=== PATIENT | female | born 1980 | race Caucasian/White ===

== ENCOUNTER 2025-04-23 10:31 | Inpatient (IN) | payer MEDICAID ==
[~2025-04-23] VITALS: Ht 165.1 cm; Wt 114.0 kg
[2025-04-23] VITALS (11 sets, daily range): BP systolic 136–148; BP diastolic 72–82; PULSE 81–96; RESP 15–23; TEMP 97.4–97.8; O2SAT 92–99
--- NOTE | 2025-04-23 10:47 | Physician Documentation ---
History of Present Illness ~ Chief Complaint: Shortness of Breath Stated Complaint: LOW 02 Time Seen by MD: 11:25 OK to notify your PCP?: Yes Source: patient Mode of Arrival: POV Exam Limitations: no limitations HPI 44-year-old female presents with her caregiver for productive cough and low SpO2. She has been having this cough for the past couple of days with thick sputum. Denies any history of respiratory problems. Here we will you all denies any other symptoms such as nausea vomiting or diarrhea or nasal congestion or fevers. Medication Reconciliation Allergies: Coded Allergies: No Known Allergies (Unverified , 04/23/25) Scheduled Diclofenac Sodium (Voltaren Arthritis Pain), 4 GM TP Q6H, (Reported) Haloperidol (Haloperidol), 1 TAB PO Q12H, (Reported) Hydroxyzine Hcl* (Atarax*), 2 TAB PO DAILY, (Reported) Olanzapine (Olanzapine), 1.5 TAB PO HS, (Reported) Paliperidone Palmitate (Invega Sustenna), 1 SYR IM Q30D, (Reported) Scheduled PRN Acetaminophen (Tylenol), 1-2 TAB PO QID PRN PRN for pain or fever, (Reported) Review of Systems All Other Systems at this time: Reviewed and Negative Physical Exam Vital Signs: RN Vital Signs have been reviewed: Yes, Temperature: 97.1, Source: Temporal, Heart Rate: 102, Respiratory Rate: 20, BP: 128/95, Pulse Oximetry: 91, Weight: 114.000 Oxygen Flow Rate: 0 Pulse Oximetry Reflects: adequate oxygenation Physical Exam General: Alert, no apparent distress. HEENT: PERRL, EOMI, no injection, moist mucous membranes. Neck: Full range of motion. Respiratory: Mild respiratory distress, bilateral expiratory wheezes heard. Chest: No accessory muscle use. Cardiovascular: Regular rate and rhythm, no murmurs. Gastrointestinal: Soft, nontender, nondistended. Bowels sounds present. Extremities: Normal range of motion, no deformity. Neurologic: Oriented x4. Psychiatric: Normal mood and affect. Skin: Normal color, warm and dry. No edema, no ecchymosis. Progress Progress Note 130 patient ambulated with nursing 02 to 91% very symptomatic, sob near syncope. 227 on recheck patient still with extensive wheezing despite two breathing treatments. d/w hospitalist who accepts for admission Results/Orders Results/Orders Orders - MEREDITH DIAZ MD Svn Treatment (04/23/25 ) * Iv Access / Saline Lock * (04/23/25 11:24) Svn Treatment (04/23/25 ) Regular Diet (04/23/25 Dinner) Page Hospitalist (04/23/25 14:30) Fill Out Med Reconciliation (04/23/25 14:30) Covid19 Binax Poc Result Entry (04/23/25 14:30) Completed Orders - MEREDITH DIAZ MD Electrocardiogram (04/23/25 11:24) Ipratropium/Albuterol Nebule (Ipratrop/A (04/23/25 11:25) Ipratropium/Albuterol Nebule (Ipratrop/A (04/23/25 12:50) Albuterol 2.5mg/3ml Nebule (Proventil 2. (04/23/25 12:50) Albuterol 2.5mg/3ml Nebule (Proventil 2. (04/23/25 14:20) * Rt Notification Q1H (04/23/25 14:19) Methylprednisolone Sod Succ (Solumedrol (04/23/25 14:20) Vital Signs 04/23/25 04/23/25 04/23/25 04/23/25 10:39 11:38 11:46 12:02 Temp 97.1 Pulse 102 86 90 Resp 20 20 20 16 B/P (MAP) 128/95 Pulse Ox 91 92 94 O2 Delivery Nasal Cannula* Nasal Cannula* O2 Flow Rate 0 2 2 FiO2 28 28 04/23/25 04/23/25 04/23/25 04/23/25 13:07 13:19 13:32 13:35 Pulse 90 94 104 Resp 20 20 B/P (MAP) 135/79 (97) Pulse Ox 93 99 91 92 O2 Delivery Nasal Cannula* Nasal Cannula* Nasal Cannula* O2 Flow Rate 2 2 2 FiO2 28 28 28 04/23/25 13:48 Pulse 105 Resp 16 B/P (MAP) 129/62 (84) Pulse Ox 93 O2 Flow Rate 3.0 Laboratory Tests Test 04/23/25 11:03 04/23/25 11:35 Sodium Level 138 Potassium Level 4.2 Chloride Level 101 Carbon Dioxide Level 27.4 Anion Gap 10 Blood Urea Nitrogen 14 Creatinine 0.72 Estimated GFR/1.73 m2 88 BUN/Creatinine Ratio 19.4 Glucose Level 97 Calcium Level 8.8 Pro-B-Type Natriuretic Peptide 30 Albumin 3.2 L Chemistry Comments White Blood Count 5.8 Red Blood Count 4.93 Hemoglobin 14.3 Hematocrit 43.1 Mean Corpuscular Volume 87.5 Mean Corpuscular Hemoglobin 28.9 Mean Corpuscular Hemoglobin Concent 33.1 Red Cell Distribution Width 16.0 H Platelet Count 219 Mean Platelet Volume 7.9 Neutrophils (%) (Auto) 52.0 Lymphocytes (%) (Auto) 31.0 Monocytes (%) (Auto) 14.9 H Eosinophils (%) (Auto) 1.4 Basophils (%) (Auto) 0.7 Neutrophils # (Auto) 3.0 Lymphocytes # (Auto) 1.8 Monocytes # (Auto) 0.9 Eosinophils # (Auto) 0.1 Basophils # (Auto) 0.0 CBC Comment Lactic Acid Level 1.0 Microbiology Date/Time Source Procedure Growth Status 04/23/25 11:12 Blood Hand Right Blood Culture - Preliminary NEGATIVE (LESS THAN 24 HOURS) Resulted EKG/XRAY/CT/US/VASC/MRI EKG : Additional Comment EKG independently interpreted by myself time 1135 indication sob NSR rate 88 normal axis normal intervals no st or t wave abnormalities Medical Decision Making Differential Dx:Considerations: Include: CHF, COPD, panic attack Departure Disposition: 09 ADMITTED INPATIENT Admitted to Inpatient Unit: to hospitalist Impression: Primary Impression: Asthma Qualified Codes: J45.901 - Unspecified asthma with (acute) exacerbation Referrals: NO PRIMARY CARE PROVIDER (PCP) Additional Comment Medical Screen Exam This patient recieved a medical screening examination. After reviewing the ind ividual's medical complaints with presenting symptoms and performing an appropriate physical examination, it was determined that no immediate life- threatening emergency medical condition is present. This individual is also not a women having contractions. Signature Scribe Signature: na Attestation: EMILI Swann Apr 23, 2025 10:47 MEREDITH DIAZ MD Apr 23, 2025 14:30
--- NOTE | 2025-04-23 11:05 | RADIOLOGY REPORT ---
DI CHEST,TWO VIEWS, HISTORY: productive cough COMPARISON: None None TECHNICAL DATA: 2 view of the chest was obtained. FINDINGS: Lines and tubes: None Cardiomediastinal silhouette: normal Pulmonary vasculature: normal Lung expansion: normal Lung airspace: normal Lung interstitium: normal Pleura: normal Pneumothorax: no Bones: Unremarkable Other: no IMPRESSION: No acute intrathoracic abnormality.
[2025-04-23] MEDS: ipratropium/albuterol 3ml nebule NEB ONE ×2 (11:37→13:02)
--- NOTE | 2025-04-23 11:37 | ELECTROCARDIOGRAPH REPORT ---
[facility] Test Date: 2025-04-23 Test Time: 11:35:23 Pat Name: VIKRAM MALAVE Department: [facility] Patient ID: [facility]-[id number] Room: [place] [address] Gender: F Probation Counselor: : 1980 Requested By: MEREDITH DIAZ Order Number: [id number] Reading MD: Dr. Hipolito Hagan Measurements Intervals Start Rate: 88 P: 85 MS: 158 QRS: 75 QRSD: 84 T: 69 QT: 344 QTc: 417 Interpretive Statements Sinus rhythm Low voltage, precordial leads Electronically Signed On 04-26-2025 19:16:[address] Hipolito Hagan Please click the below link to view image of tracing.
[2025-04-23 11:41] LABS: MEAN PLATELET VOLUME 7.9 FL (7.4-10.4); RED CELL DISTRIBUTION WIDTH 16.0 % (11.5-14.5)
[2025-04-23 12:00] LABS: CREATININE 0.72 MG/DL (0.40-0.90); PRO BRAIN NATRIURETIC PEPTIDE 30 PG/ML (0-125); TOTAL CARBON DIOXIDE 27.4 MMOL/L (24-32); eCRCL 89 ML/MIN; eGFR 88 ML/MIN
[2025-04-23] MEDS: albuterol 2.5 MG/3 ML nebule NEB ONE ×2 (13:02→14:20)
[2025-04-23] MEDS ORDERED: OLAN-38 PO (13:52)
[2025-04-23] MEDS ORDERED: PALI156D IM (13:52)
[2025-04-23] MEDS ORDERED: HYDR-3686 PO (13:52)
[2025-04-23] MEDS ORDERED: HALO10TA13 PO (13:52)
[2025-04-23] MEDS ORDERED: DICL20GE TP (13:52)
[2025-04-23] MEDS ORDERED: ACET-890 PO (13:52)
[2025-04-23] MEDS ORDERED: magnesium Cl slow-release 64mg tablet PO PRN (14:45)
[2025-04-23] MEDS ORDERED: potassium Cl 20 mEq SR tablet PO PRN ×2 (14:45)
[2025-04-23] MEDS ORDERED: magnesium sulf-water 4G/100mL 100 ML IV PRN (14:45)
[2025-04-23] MEDS ORDERED: potassium Cl 40MEQ/1/2NS 520ml 520 ML IV PRN (14:45)
[2025-04-23] MEDS ORDERED: magnesium sulf-water 2g/50mL 50 ML IV PRN (14:45)
[2025-04-23] MEDS: albuterol 2.5 MG/3 ML nebule NEB SCH (15:56)
[2025-04-23] MEDS: CefTRIAXone 2gm/D5W 50ml BAG 50 ML IV SCH (16:42)
--- NOTE | 2025-04-23 17:44 | HISTORY AND PHYSICAL ---
History & Physical Providers to CC ~ History of Present Illness Reason for Admit\Complaint: Patient was brought from correction because of low oxygen saturation History of Present Illness Patient is 44-year-old female who currently lives in [facility] unit in [place]. Patient is conserved in her conservator number is in her name is Leti she has [facility]. Patient was brought from correction because of low oxygen saturation ( between 84-90 percent ) . Patient is current smoker smokes 5-6 cigarettes per day since last 13 years denied use of any alcohol or any recreational drugs. No fever cough or phlegm noticed. Patient has sick roommate with nausea vomiting and diarrhea symptoms but not with the respiratory symptoms. Patient denies any chest pain no irregular heart rate no swelling over the ankles. Besides shortness of breaths no other symptoms was noticed. No new changes in the medication and patient is compliant with her home medications. Allergies: Coded Allergies: No Known Allergies (Unverified , 04/23/25) Home Medications Home Medications Active Reported Voltaren Arthritis Pain (Diclofenac Sodium) 1 % Gel..gram. 4 Gm TP Q6H Tylenol (Acetaminophen) 325 Mg Tablet 1-2 Tab PO QID PRN PRN 7 Days Atarax* (Hydroxyzine HCl) 25 Mg Tablet 2 Tab PO DAILY 30 Days Olanzapine 10 Mg Tablet 1.5 Tab PO HS 30 Days Invega Sustenna (Paliperidone Palmitate) 156 Mg/Ml Syringe 1 Syr IM Q30D 30 Days Haloperidol 10 Mg Tablet 1 Tab PO Q12H 30 Days Past Medical History Past Medical History Schizophrenia and anxiety Past Surgical History Surgical History Comment No significant past surgical history Past Social History Social History Comment lives in [facility] unit in [place]. Patient is conserved in her conservator number is in her name is Leti she has [facility]. Patient is able to ambulate without using any assistive device ROS ROS Review of system as mentioned above in HPI rest of the review of system unremarkable. Exam Vitals: Vital Signs Date Time Temp Pulse Resp B/P (MAP) Pulse Ox O2 Delivery O2 Flow Rate FiO2 04/23/25 17:11 85 04/23/25 16:43 22 151/71 (97) 94 3.0 04/23/25 13:35 Nasal Cannula* 28 04/23/25 10:39 97.1 General: General-patient not in any acute distress, alert awake oriented, chronically ill-appearing HEENT-atraumatic normocephalic, neck supple without elevated JVD, no thyromegaly or carotid bruit. No lymphadenopathy bilaterally. Eyes-no icterus or pallor seen in eyes Chest-decreased breath sounds to auscultation bilaterally, breathing nonlabored no tachypnea, wheezing and rales noticed , no crackles. Heart-S1-S2 normal, regular heart rate no murmur Abdomen bowel sounds positive on auscultation, soft nondistended nontender no guarding, no rigidity Skin no active skin rash Neurology-grossly intact, nonfocal alert awake oriented Extremity- no pedal edema able to move all 4 extremities Psychiatry - patient is not confused or agitated cooperated during physical examination Diagnostic Data Last Recorded Lab Results: 04/23/25 1135 04/23/25 1103 Advance Care Planning Advanced Care plannin - 30 Minutes Additional Plan Patient is 44-year-old female who [facility] in [place]. Patient is conserved in her conservator number is in her name is Leti she has [facility]. Patient was brought from correction because of low oxygen saturation ( between 84-90 percent ) . Patient is admitted for shortness of breaths in possible asthma exacerbation. Patient is started on IV antibiotic IV steroids in albuterol nebulizer. We will do patient's home medication reconciliation and for her psych medication once updated in electronic health record system by nursing staff or pharmacist. Further workup ordered for shortness of breath . All labs and diagnostic workup reviewed Her x-ray in the labs looks unremarkable. Code status discussed with the patient patient wishes to stay full code. Patient was strongly advised to quit smoking and risks explained. Patient's current condition is guarded I will continue to follow patient in a.m.. Date of Service: Apr 23, 2025 Billing Provider: EVERETT DIAS MD Common Visit Codes: [id number] INP/OBS CARE (HIGH) Secondary Visit Codes: [id number] CARE PLAN 30 MINUTES EVERETT DIAS MD Apr 23, 2025 17:44
[2025-04-23] MEDS: azithromycin/NS 500mg/250ml 250 ML IV SCH (17:53)
--- NOTE | 2025-04-23 18:29 | CARDIOLOGY REPORT ---
APPROVED REPORT EXAM: Comprehensive 2D, Doppler, and color-flow Echocardiogram. Patient Location: ER 3 Blood Pressure: 129/62 mmHg Heart Rate: 77 bpm Rhythm: SINUS Indications SHORTNESS OF BREATH Lumber Scaler: none Previous echo: none 2D Dimensions RVDd 3.3 cm LA Diam4.0 cm IVSd 1.0 (0.7-1.1cm) LVDd 3.7 cm PWd 1.0 (0.7-1.1cm) IVSs 1.2 (0.8-1.2cm) LVDs 2.7 (2.5-4.0cm) PWs 1.4 (0.8-1.2cm) LVOT Diameter 2.04 (1.8-2.4cm) LVEF(%) 55.9 (>50%) FS (%) 28.5 % SV 32.9 ml CO 3.0 L/min M-Mode Dimensions Left Atrium(MM) 3.62 (2.5-4.0cm) Aortic Root 2.89 (2.2-3.7cm) Aortic Cusp Exc 2.20 (1.5-2.0cm) Biplane 2D LA Volumes LA ESV Index 15.96 mL/m2 Aortic Valve AoV Peak Brandon. 145.4 cm/s AoV VTI 22.5 cm AO Peak GR. 8.5 mmHg AO Mean GR. 5 mmHg LVOT VTI 17.70 cm LVOT Peak Brandon. 118.4 cm/s GALDINO(VTI)/BSA 2.55 cm2/m2 GALDINO (VTI) 2.55 cm2 Mitral Valve MV E Velocity 65.1 cm/s MV Peak Gr. 3 mmHg MV DECEL TIME 260 ms MV A Velocity 82.6 cm/s MV PHT 56 ms E/A Ratio 0.8 MVA (PHT) 3.93 cm2 MV VMax82.5 cm/s TDI Medial E' P. V 10.54 cm/s E/Medial E' 6.2 Pulmonary Vein S1 Velocity 41.9 cm/s D2 Velocity 52.6 cm/s PVa Gzdoebfy20.5 cm/s PVa [id number] msec LEFT VENTRICLE Small LV size and normal wall thickness. Overall systolic function is normal. Grade 1 diastolic dysfu nction, impaired relaxation (low to normal filling pressures). LVEF is 55-60%. RIGHT VENTRICLE RV is normal size and function. ATRIA LA size is normal. RA size is normal. AORTIC VALVE Trileaflet AV appears mildly sclerotic without stenosis or insufficiency. MITRAL VALVE Mild MV annular calcification without stenosis. Trace regurgitation. TRICUSPID VALVE TV appears structurally normal with trace regurgitation. PULMONIC VALVE Normal PV without stenosis, physiologic insufficiency. GREAT VESSELS Aortic root is normal in size. Ascending aorta is normal in size. PERICARDIUM Trace circumferential pericardial effusion without evidence of hemodynamic compromise. Prominent ante rior epicardial fat pad is present. Other Information Study Quality: Adequate, but difficult due to body habitus, shortness of breath, and cough. Conclusion Small LV size and normal wall thickness. Overall systolic function is normal. Grade 1 diastolic dysfu nction, impaired relaxation (low to normal filling pressures). LVEF is 55-60%. RV is normal size and function. LA size is normal. RA size is normal. Trileaflet AV appears mildly sclerotic without stenosis or insufficiency. Mild MV annular calcification without stenosis. Trace regurgitation. TV appears structurally normal with trace regurgitation. Trace circumferential pericardial effusion without evidence of hemodynamic compromise. Prominent ante rior epicardial fat pad is present.
[2025-04-23] MEDS: OLANZAPINE 5 MG TABLET PO SCH (22:18)
[2025-04-23] MEDS: heparin, porcine 5000 units/ml vial SQ SCH (22:20)
[2025-04-24] VITALS (16 sets, daily range): BP systolic 103–157; BP diastolic 54–82; PULSE 63–102; RESP 13–20; TEMP 97.3–97.9; O2SAT 89–98
[2025-04-24 06:53] LABS: CREATININE 0.67 MG/DL (0.40-0.90); TOTAL CARBON DIOXIDE 25.3 MMOL/L (24-32); eCRCL 95 ML/MIN; eGFR > 90 ML/MIN
[2025-04-24 07:02] LABS: MEAN PLATELET VOLUME 8.5 FL (7.4-10.4); RED CELL DISTRIBUTION WIDTH 15.5 % (11.5-14.5)
[2025-04-24] MEDS ORDERED: FLUO20CA41 PO (10:14)
--- NOTE | 2025-04-24 16:09 | PROGRESS NOTE ---
Daily Progress Note Providers to CC ~ Antibiotic Timeout Antibiotic Ordered?: Yes Subjective Patient was seen in her room requiring 2 L of oxygen saturating well. Patient's clinical condition not much change since yesterday. Waiting for the CTA chest results. Objective Vital Signs Date Time Temp Pulse Resp B/P (MAP) Pulse Ox O2 Delivery O2 Flow Rate FiO2 04/24/25 15:49 86 18 Nasal Cannula 1.0 04/24/25 15:42 89 21 04/24/25 15:00 97.9 155/82 (106) Result Diagram: 04/24/25 0605 04/24/25 06 General-patient not in any acute distress, alert awake oriented, chronically ill-appearing HEENT-atraumatic normocephalic, neck supple without elevated JVD, no thyromegaly or carotid bruit. No lymphadenopathy bilaterally. Eyes-no icterus or pallor seen in eyes Chest-decreased breath sounds to auscultation bilaterally, breathing nonlabored no tachypnea, wheezing and rales noticed , no crackles. Heart-S1-S2 normal, regular heart rate no murmur Abdomen bowel sounds positive on auscultation, soft nondistended nontender no guarding, no rigidity Skin no active skin rash Neurology-grossly intact, nonfocal alert awake oriented Extremity- no pedal edema able to move all 4 extremities Psychiatry - patient is not confused or agitated cooperated during physical examination Coagulation Studies Laboratory Tests Test 04/24/25 06:05 D-Dimer 0.71 MG/L FEU (0-0.50) H D-Dimer Comment Problem\Assessment\Plan Patient is 44-year-old female who [facility] [place]. Patient is conserved in her conservator number is in her name is Leti she has [facility]. Patient was brought from longterm because of low oxygen saturation ( between 84-90 percent ) . Patient is admitted for shortness of breaths in possible asthma exacerbation. # possible asthma exacerbation- continue on IV antibiotic IV steroids in albuterol nebulizer. # Schizophrenia and anxiety- home medication reconciliation updated in electronic health record system # Code status discussed with the patient patient wishes to stay full code. # tobacco abuse- Patient was strongly advised to quit smoking and risks explained. Patient's current condition is guarded Incoming provider will continue to follow patient in a.m.. Date of Service: Apr 24, 2025 Billing Provider: EVERETT DIAS MD Common Visit Codes: [id number] INP/OBS CARE(HIGH) EVERETT DIAS MD Apr 24, 2025 16:09
--- NOTE | 2025-04-24 17:20 | RADIOLOGY REPORT ---
CTA Chest with intravenous contrast INDICATION: elevated D- dimer , SOB COMPARISON: None TECHNIQUE: Multidetector spiral CTA of the chest was performed of the chest with intravenous contrast . PULMONARY ANGIOGRAPHY PROTOCOL was utilized using a bolus-tracking technique centered on the main p ulmonary artery. Axial, coronal and sagittal multiplanar and MIP reformats were performed. CONTRAST: Type of contrast: Omni 350 Contrast injected: 100 ml Radiation dose : Chest: CTDI volume is 24 mGy. Dose-length product is 828 mGy*cm The dose indicators for CT are the volume computed Tomography (CT) dose Index (CTDIvol) and the dose Length product (DLP), and are measured in units of mGy and mGy-cm, respectively. These indicators are not patient dose, but values generated from the CT scanner acquisition factors. The report includes radiation exposure data for exposures received during this examination. Findings: Limited by motion. Pulmonary artery: No large central or large segmental pulmonary embolism. Lower neck: Normal thyroid. Lungs: Bibasilar atelectasis and consolidation. Heart/Vascular Structures: Normal heart size. Trace pericardial effusion. Lymph Nodes: Mediastinal and hilar lymphadenopathy. Pleura: Small bilateral pleural effusions. Musculoskeletal: No acute osseous abnormality. Soft tissues: Normal. Upper abdomen: Limited portions of the upper abdomen are unremarkable. IMPRESSION: 1. Limited by motion. No large central pulmonary embolism. 2. Small bilateral pleural effusions with associated bibasilar atelectasis and consolidation. Medias tinal and hilar lymphadenopathy. Trace pericardial effusion. Clinical correlation and continued foll ow-up is recommended. HS:Y
[2025-04-25] VITALS (16 sets, daily range): BP systolic 112–151; BP diastolic 62–90; PULSE 64–101; RESP 14–19; TEMP 97.2–97.8; O2SAT 91–96
[2025-04-25 04:54] LABS: MEAN PLATELET VOLUME 8.5 FL (7.4-10.4); RED CELL DISTRIBUTION WIDTH 15.9 % (11.5-14.5)
[2025-04-25 05:08] LABS: TOTAL CARBON DIOXIDE 26.8 MMOL/L (24-32)
[2025-04-25 06:30] LABS: CREATININE 0.81 MG/DL (0.40-0.90); eCRCL 79 ML/MIN; eGFR 76 ML/MIN
[2025-04-25] MEDS ORDERED: ipratropium/albuterol 3ml nebule NEB PRN (08:30)
[2025-04-25] MEDS ORDERED: FLUT1DIS4 INH (10:23)
[2025-04-25] MEDS ORDERED: PRED10TA23 PO ×2 (10:23→16:58)
[2025-04-25] MEDS ORDERED: ALBU90AE INH (10:23)
[2025-04-25] MEDS ORDERED: AMOX-419 PO (10:23)
[2025-04-25] MEDS ORDERED: ASPI81TA52 PO (10:23)
--- NOTE | 2025-04-25 15:18 | PROGRESS NOTE ---
Daily Progress Note Providers to CC ~ Antibiotic Timeout Antibiotic Ordered?: Yes Subjective No acute events overnight. Patient examined at bedside. No new complaints, not in acute distress. Patient denies chest pain, palpitations, abdominal pain, n/v/d. Vss, labs unremarkable. wbc 20, likely demargination from steroid, procal negative, lactic acid normal. Oxygen challenge w/ ambulation- O2 dropped to 86% w/ ambulation. Steroid dose adjusted, scheduled Duoneb started, continued on prn albuterol. Objective Vital Signs Date Time Temp Pulse Resp B/P (MAP) Pulse Ox O2 Delivery O2 Flow Rate FiO2 04/25/25 11:56 86 18 Room Air 0.0 04/25/25 11:49 91 21 04/25/25 06:00 97.4 112/62 (79) Result Diagram: 04/25/2542404/25/25424 Physical Exam General: A&Ox 3, NAD HEENT: Normocephalic, PERRLA Neck: Supple, trachea midline, no JVD Chest: Clear to auscultation bilaterally Cardiovascular: RRR, S1&S2 GI: Soft and nontender Extremities: No cyanosis/clubbing/or edema REFERRAL MANAGER: CN II-XII intact, no focal deficits Musculoskeletal: No paraspinal muscle tenderness, no muscle spasm Skin: Warm and intact Coagulation Studies Laboratory Tests Test 04/24/25 06:05 D-Dimer 0.71 MG/L FEU (0-0.50) H D-Dimer Comment Problem\Assessment\Plan Patient is 44-year-old female who [facility] [place]. Patient is conserved in her conservator number is in [facility] from custodial because of low oxygen saturation ( between 84-90 percent ) . Patient is admitted for shortness of breaths in possible asthma exacerbation. COPD/asthma exacerbation Tobacco abuse -04/25: desatted to 86% with ambulation, steroid dose adjusted, start scheduled bronchodilator, supplemental oxygen, empirical abx Schizophrenia and anxiety -continue home olanzapine Code status: Full Code DVT/VTE Prophylaxis: Date of Service: Apr 25, 2025 Billing Provider: BRIAN NOGUERA Common Visit Codes: [id number] INP/OBS CARE(HIGH) BRIAN NOGUERA Apr 25, 2025 15:18
[2025-04-25] MEDS: budesonide 0.5mg/2ml UD nebule IH SCH (15:39)
[2025-04-25] MEDS: ipratropium/albuterol 3ml nebule NEB SCH (15:46)
[2025-04-26] VITALS (15 sets, daily range): BP systolic 118–145; BP diastolic 54–74; PULSE 60–81; RESP 14–18; TEMP 97.4–98; O2SAT 89–99
[2025-04-26 05:30] LABS: MEAN PLATELET VOLUME 8.5 FL (7.4-10.4); RED CELL DISTRIBUTION WIDTH 15.9 % (11.5-14.5)
[2025-04-26] MEDS ORDERED: albuterol 2.5 MG/3 ML nebule NEB PRN (14:20)
--- NOTE | 2025-04-26 14:20 | PROGRESS NOTE ---
Daily Progress Note Providers to CC ~ Antibiotic Timeout Antibiotic Ordered?: Yes Subjective No acute events overnight. Patient examined at bedside. No new complaints, not in acute distress. Patient denies chest pain, palpitations, shortness of breath, abdominal pain, n/v/d. Vss, labs unremarkable. Remains on room air with oxygen saturation in 90s. Oxygen challenge w/ ambulation- O2 dropped to 84% w/ ambulation requiring supplemental oxygen. Pending placement. Objective Vital Signs Date Time Temp Pulse Resp B/P (MAP) Pulse Ox O2 Delivery O2 Flow Rate FiO2 04/26/25 11:37 67 18 Room Air 0.0 04/26/25 11:36 98 21 04/25/25 22:00 97.8 117/70 (86) Result Diagram: 04/26/254 04/25/25424 Physical Exam General: A&Ox 3, NAD HEENT: Normocephalic, PERRLA Neck: Supple, trachea midline, no JVD Chest: Clear to auscultation bilaterally Cardiovascular: RRR, S1&S2 GI: Soft and nontender Extremities: No cyanosis/clubbing/or edema MONITOR CAR OPERATOR: CN II-XII intact, no focal deficits Musculoskeletal: No paraspinal muscle tenderness, no muscle spasm Skin: Warm and intact Coagulation Studies Laboratory Tests Test 04/24/25 06:05 D-Dimer 0.71 MG/L FEU (0-0.50) H D-Dimer Comment Problem\Assessment\Plan Patient is 44-year-old female [facility] [place]. Patient is conserved in her conservator number is in her name is Leti she has [facility]. [facility] because of [facility] saturation ( between 84-90 percent ) . Patient is admitted for shortness of breaths in possible asthma exacerbation. COPD/asthma exacerbation Tobacco abuse -04/25: desatted to 86% with ambulation, steroid dose adjusted, start scheduled bronchodilator, supplemental oxygen, empirical abx -04/26: pending placement Schizophrenia and anxiety -continue home olanzapine Code status: Full Code DVT/VTE Prophylaxis: Date of Service: Apr 26, 2025 Billing Provider: BRIAN NOGUERA Common Visit Codes: [id number] INP/OBS CARE(HIGH) BRIAN NOGUERA Apr 26, 2025 14:20
[2025-04-27] VITALS (13 sets, daily range): BP systolic 118–156; BP diastolic 65–78; PULSE 57–85; RESP 16–20; TEMP 97.9–98.2; O2SAT 90–96
[2025-04-27 05:11] LABS: CREATININE 0.75 MG/DL (0.40-0.90); TOTAL CARBON DIOXIDE 25.3 MMOL/L (24-32); eCRCL 85 ML/MIN; eGFR 84 ML/MIN
[2025-04-27 05:27] LABS: MEAN PLATELET VOLUME 7.9 FL (7.4-10.4); RED CELL DISTRIBUTION WIDTH 16.4 % (11.5-14.5)
--- NOTE | 2025-04-27 10:48 | PROGRESS NOTE ---
Daily Progress Note Providers to CC ~ Antibiotic Timeout Antibiotic Ordered?: Yes Subjective No acute events overnight. Patient examined at bedside. No new complaints, not in acute distress. Patient denies chest pain, palpitations, shortness of breath, abdominal pain, n/v/d. Vss, labs unremarkable. Remains on room air with oxygen saturation in 90s. Oxygen challenge w/ ambulation- O2 dropped to 84% w/ ambulation requiring supplemental oxygen. Pending placement. Objective Vital Signs Date Time Temp Pulse Resp B/P (MAP) Pulse Ox O2 Delivery O2 Flow Rate FiO2 04/27/25 08:13 70 18 Room Air 0.0 04/27/25 08:12 93 21 04/26/25 22:00 98.0 145/73 (97) Result Diagram: 04/27/25 0513 04/27/25 0431 Physical Exam General: A&Ox 3, NAD HEENT: Normocephalic, PERRLA Neck: Supple, trachea midline, no JVD Chest: Clear to auscultation bilaterally Cardiovascular: RRR, S1&S2 GI: Soft and nontender Extremities: No cyanosis/clubbing/or edema SECURITY COMPLIANCE ENGINEER: CN II-XII intact, no focal deficits Musculoskeletal: No paraspinal muscle tenderness, no muscle spasm Skin: Warm and intact Coagulation Studies Laboratory Tests Test 04/24/25 06:05 D-Dimer 0.71 MG/L FEU (0-0.50) H D-Dimer Comment Problem\Assessment\Plan Patient is 44-year-old female who [facility] [place]. Patient is conserved in her conservator number is in her name is Leti she has [facility]. Patient was brought from detention because of low oxygen saturation ( between 84-90 percent ) . Patient is admitted for shortness of breaths in possible asthma exacerbation. COPD/asthma exacerbation Tobacco abuse -04/25: desatted to 86% with ambulation, steroid dose adjusted, start scheduled bronchodilator, supplemental oxygen, empirical abx -04/26: pending placement Schizophrenia and anxiety -continue home olanzapine Code status: Full Code DVT/VTE Prophylaxis: Date of Service: Apr 27, 2025 Billing Provider: BRIAN NOGUERA Common Visit Codes: [id number] INP/OBS CARE(HIGH) BRIAN NOGUERA Apr 27, 2025 10:48
[2025-04-28] VITALS (15 sets, daily range): BP systolic 116–140; BP diastolic 54–76; PULSE 65–80; RESP 14–20; TEMP 97.6–98.5; O2SAT 91–98
[2025-04-28 04:44] LABS: MEAN PLATELET VOLUME 7.9 FL (7.4-10.4); RED CELL DISTRIBUTION WIDTH 15.9 % (11.5-14.5)
[2025-04-28 05:05] LABS: CREATININE 0.84 MG/DL (0.40-0.90); TOTAL CARBON DIOXIDE 27.9 MMOL/L (24-32); eCRCL 76 ML/MIN; eGFR 73 ML/MIN
[2025-04-28 05:14] LABS: BANDS% (MANUAL) 2 % (0-10); LYMPHOCYTES % (MANUAL) 12 % (21-51); METAMYLEOCYTES% (MANUAL) 1 % (0-0); MONOCYTES % (MANUAL) 3 % (2-12); MYELOCYTES % (MANUAL) 1 % (0-0); NEUTROPHILS % (MANUAL) 81 % (42-75); PLATELET ESTIMATE NORMAL
--- NOTE | 2025-04-28 11:39 | PROGRESS NOTE ---
Daily Progress Note Providers to CC ~ Antibiotic Timeout Antibiotic Ordered?: Yes Subjective No acute events overnight. Patient examined at bedside. No new complaints, not in acute distress. Patient denies chest pain, palpitations, shortness of breath, abdominal pain, n/v/d. Vss, on 1L O2, labs unremarkable. Pending placement. Objective Vital Signs Date Time Temp Pulse Resp B/P (MAP) Pulse Ox O2 Delivery O2 Flow Rate FiO2 04/28/25 11:27 77 18 Nasal Cannula 1.0 04/28/25 11:17 91 24 04/27/25 22:00 98.2 118/65 (82) Result Diagram: 04/28/2542704/28/25427 Physical Exam General: A&Ox 3, NAD HEENT: Normocephalic, PERRLA Neck: Supple, trachea midline, no JVD Chest: Clear to auscultation bilaterally Cardiovascular: RRR, S1&S2 GI: Soft and nontender Extremities: No cyanosis/clubbing/or edema CATALOGUE CLERK: CN II-XII intact, no focal deficits Musculoskeletal: No paraspinal muscle tenderness, no muscle spasm Skin: Warm and intact Coagulation Studies Laboratory Tests Test 04/24/25 06:05 D-Dimer 0.71 MG/L FEU (0-0.50) H D-Dimer Comment Problem\Assessment\Plan Patient is 44-year-old female who [facility] [place]. Patient is conserved in her conservator number is in her name is Leti [facility]. Patient was brought from retirement because of low oxygen saturation ( between 84-90 percent ). Patient is admitted for shortness of breaths in possible asthma exacerbation. Assessment & Plan Acute COPD/asthma exacerbation Tobacco abuse -04/25: desatted to 86% with ambulation, steroid dose adjusted, start scheduled bronchodilator, supplemental oxygen, empirical abx -04/26: pending placement Schizophrenia Anxiety disorder -continue home olanzapine Code status: Full Code DVT/VTE Prophylaxis: heparin Date of Service: Apr 28, 2025 Billing Provider: BRIAN NOGUERA Common Visit Codes: [id number] INP/OBS CARE(MOD) BRIAN NOGUERA Apr 28, 2025 11:39
[2025-04-29] VITALS (13 sets, daily range): BP systolic 122–139; BP diastolic 68; PULSE 61–79; RESP 16–18; TEMP 97.1–97.4; O2SAT 92–94
[2025-04-29 05:56] LABS: MEAN PLATELET VOLUME 8.3 FL (7.4-10.4); RED CELL DISTRIBUTION WIDTH 16.3 % (11.5-14.5)
[2025-04-29 06:16] LABS: CREATININE 0.79 MG/DL (0.40-0.90); TOTAL CARBON DIOXIDE 27.0 MMOL/L (24-32); eCRCL 81 ML/MIN; eGFR 79 ML/MIN
[2025-04-29 07:17] LABS: BANDS% (MANUAL) 2.0 % (0-10); LYMPHOCYTES % (MANUAL) 10.0 % (21-51); METAMYLEOCYTES% (MANUAL) 1.0 % (0-0); MONOCYTES % (MANUAL) 5.0 % (2-12); NEUTROPHILS % (MANUAL) 82.0 % (42-75); PLATELET ESTIMATE NORMAL
--- NOTE | 2025-04-29 13:36 | PROGRESS NOTE ---
Daily Progress Note Providers to CC ~ Antibiotic Timeout Antibiotic Ordered?: Yes Subjective No acute events overnight. Patient examined at bedside. No new complaints, not in acute distress. Patient denies chest pain, palpitations, shortness of breath, abdominal pain, n/v/d. Vss, on 1-2L O2, labs unremarkable. Pending placement. Objective Vital Signs Date Time Temp Pulse Resp B/P (MAP) Pulse Ox O2 Delivery O2 Flow Rate FiO2 04/29/25 11:07 72 16 Nasal Cannula 2.0 04/29/25 11:00 94 28 04/29/25 06:49 97.4 122/68 (86) Result Diagram: 04/29/25 0455 04/29/25 0455 Physical Exam General: A&Ox 3, NAD HEENT: Normocephalic, PERRLA Neck: Supple, trachea midline, no JVD Chest: Clear to auscultation bilaterally Cardiovascular: RRR, S1&S2 GI: Soft and nontender Extremities: No cyanosis/clubbing/or edema SURGICAL ENDOSCOPIST: CN II-XII intact, no focal deficits Musculoskeletal: No paraspinal muscle tenderness, no muscle spasm Skin: Warm and intact Coagulation Studies Laboratory Tests Test 04/24/25 06:05 D-Dimer 0.71 MG/L FEU (0-0.50) H D-Dimer Comment Problem\Assessment\Plan Patient is 44-year-old female who [facility] [place]. Patient is conserved in her conservator number is in her name is Leti [facility] Patient was brought from correction because of low oxygen saturation ( between 84-90 percent ). Patient is admitted for shortness of breaths in possible asthma exacerbation. Assessment & Plan Acute COPD/asthma exacerbation Tobacco abuse -CTA negative PE, pBNP wnl, TTE LVEF 55-60%, no significant VHD, trace circumferential pericardial effusion without evidence of hemodynamic compromise -04/25: desatted to 86% with ambulation, steroid dose adjusted, start scheduled bronchodilator, supplemental oxygen, empirical abx -04/26: pending placement Schizophrenia Anxiety disorder -continue home olanzapine Code status: Full Code DVT/VTE Prophylaxis: heparin Date of Service: Apr 29, 2025 Billing Provider: BRIAN NOGUERA SATELLITE DISH REPAIRER Common Visit Codes: [id number] INP/OBS CARE(MOD) BRIAN NOGUERA SATELLITE DISH REPAIRER Apr 29, 2025 13:36
[2025-04-30] VITALS (14 sets, daily range): BP systolic 116–139; BP diastolic 65–76; PULSE 62–83; RESP 14–20; TEMP 97.5–97.9; O2SAT 91–96
[2025-04-30 06:06] LABS: MEAN PLATELET VOLUME 8.2 FL (7.4-10.4); RED CELL DISTRIBUTION WIDTH 16.1 % (11.5-14.5)
[2025-04-30 06:44] LABS: CREATININE 0.78 MG/DL (0.40-0.90); TOTAL CARBON DIOXIDE 27.5 MMOL/L (24-32); eCRCL 82 ML/MIN; eGFR 80 ML/MIN
[2025-04-30 06:45] LABS: BANDS% (MANUAL) 4.0 % (0-10); LYMPHOCYTES % (MANUAL) 8.0 % (21-51); METAMYLEOCYTES% (MANUAL) 2.0 % (0-0); MONOCYTES % (MANUAL) 5.0 % (2-12); NEUTROPHILS % (MANUAL) 81.0 % (42-75); PLATELET ESTIMATE NORMAL
--- NOTE | 2025-04-30 10:50 | PROGRESS NOTE ---
Daily Progress Note Providers to CC ~ Antibiotic Timeout Antibiotic Ordered?: No Subjective No acute events overnight. Patient examined at bedside. No new complaints, not in acute distress. Patient denies chest pain, palpitations, shortness of breath, abdominal pain, n/v/d. Vss, on 1-2L O2, labs unremarkable. Pending placement. Objective Vital Signs Date Time Temp Pulse Resp B/P (MAP) Pulse Ox O2 Delivery O2 Flow Rate FiO2 04/30/25 07:21 63 16 Nasal Cannula 2.0 04/30/25 07:18 97.9 116/65 (82) 96 04/30/25 07:14 28 Result Diagram: 04/30/25 0501 04/30/25 0501 Physical Exam General: A&Ox 3, NAD HEENT: Normocephalic, PERRLA Neck: Supple, trachea midline, no JVD Chest: Clear to auscultation bilaterally Cardiovascular: RRR, S1&S2 GI: Soft and nontender Extremities: No cyanosis/clubbing/or edema MOLD STAMPER AND REPAIRER: CN II-XII intact, no focal deficits Musculoskeletal: No paraspinal muscle tenderness, no muscle spasm Skin: Warm and intact Coagulation Studies Laboratory Tests Test 04/24/25 06:05 D-Dimer 0.71 MG/L FEU (0-0.50) H D-Dimer Comment Problem\Assessment\Plan Patient is 44-year-old female who [facility] in [place]. Patient is conserved in her conservator number is in [facility] name is [facility] because of [facility] saturation ( between 84-90 percent ). Patient is admitted for shortness of breaths in possible asthma exacerbation. Assessment & Plan Acute COPD/asthma exacerbation Tobacco abuse -CTA negative PE, pBNP wnl, TTE LVEF 55-60%, no significant VHD, trace circumferential pericardial effusion without evidence of hemodynamic compromise -04/25: desatted to 86% with ambulation, steroid dose adjusted, start scheduled bronchodilator, supplemental oxygen, empirical abx -04/26-04/30: pending placement Schizophrenia Anxiety disorder -continue home olanzapine Code status: Full Code DVT/VTE Prophylaxis: heparin Date of Service: Apr 30, 2025 Billing Provider: BRIAN NOGUERA Common Visit Codes: [id number] INP/OBS CARE(MOD) BRIAN NOGUERA [facility] Apr 30, 2025 10:50
[2025-05-01] VITALS (13 sets, daily range): BP systolic 139–147; BP diastolic 70–75; PULSE 60–80; RESP 14–20; TEMP 97.8–98.6; O2SAT 91–97
[2025-05-01 05:12] LABS: MEAN PLATELET VOLUME 7.9 FL (7.4-10.4); RED CELL DISTRIBUTION WIDTH 15.9 % (11.5-14.5)
[2025-05-01 05:29] LABS: CREATININE 0.78 MG/DL (0.40-0.90); TOTAL CARBON DIOXIDE 28.5 MMOL/L (24-32); eCRCL 82 ML/MIN; eGFR 80 ML/MIN
[2025-05-01 05:51] LABS: BANDS% (MANUAL) 2.0 % (0-10); LYMPHOCYTES % (MANUAL) 8.0 % (21-51); METAMYLEOCYTES% (MANUAL) 1.0 % (0-0); MONOCYTES % (MANUAL) 5.0 % (2-12); NEUTROPHILS % (MANUAL) 84.0 % (42-75); NUCLEATED RED BLOOD CELLS 1 /100WBC (0-0)
[2025-05-01 05:52] LABS: PLATELET ESTIMATE NORMAL
--- NOTE | 2025-05-01 11:15 | PROGRESS NOTE ---
Daily Progress Note Providers to CC ~ Antibiotic Timeout Antibiotic Ordered?: No Subjective No acute events overnight. Patient examined at bedside. No new complaints, not in acute distress. Patient denies chest pain, palpitations, shortness of breath, abdominal pain, n/v/d. Vss, on 1-2L O2, labs unremarkable. Pending placement. Objective Vital Signs Date Time Temp Pulse Resp B/P (MAP) Pulse Ox O2 Delivery O2 Flow Rate FiO2 05/01/25 08:21 18 Nasal Cannula 1.0 05/01/25 07:50 64 05/01/25 07:38 92 28 04/30/25 22:00 97.6 128/69 (88) Result Diagram: 05/01/25 0448 05/01/25 0448 Physical Exam General: A&Ox 3, NAD HEENT: Normocephalic, PERRLA Neck: Supple, trachea midline, no JVD Chest: Clear to auscultation bilaterally Cardiovascular: RRR, S1&S2 GI: Soft and nontender Extremities: No cyanosis/clubbing/or edema SHOE ASSOCIATE: CN II-XII intact, no focal deficits Musculoskeletal: No paraspinal muscle tenderness, no muscle spasm Skin: Warm and intact Coagulation Studies Laboratory Tests Test 04/24/25 06:05 D-Dimer 0.71 MG/L FEU (0-0.50) H D-Dimer Comment Problem\Assessment\Plan Patient is 44-year-old female who [facility] [place]. Patient is conserved in her conservator number is in her name is Leti [facility] Patient was [facility] from [facility] because of low oxygen saturation ( between 84-90 percent ). Patient is admitted for shortness of breaths in possible asthma exacerbation. Assessment & Plan Acute COPD/asthma exacerbation Tobacco abuse -CTA negative PE, pBNP wnl, TTE LVEF 55-60%, no significant VHD, trace circumferential pericardial effusion without evidence of hemodynamic compromise -04/25: desatted to 86% with ambulation, steroid dose adjusted, start scheduled bronchodilator, supplemental oxygen, empirical abx -04/26-05/01: abx course finished, pending placement Schizophrenia Anxiety disorder -continue home olanzapine Code status: Full Code DVT/VTE Prophylaxis: heparin Date of Service: May 01, 2025 Billing Provider: BRIAN NOGUERAP Common Visit Codes: [id number] INP/OBS CARE(MOD) BRIAN NOGUERAP May 01, 2025 11:15
[2025-05-02] VITALS (10 sets, daily range): BP systolic 106–155; BP diastolic 47–80; PULSE 65–80; RESP 16–22; TEMP 97.6–98.2; O2SAT 18–98
[2025-05-02 04:58] LABS: MEAN PLATELET VOLUME 8.1 FL (7.4-10.4); RED CELL DISTRIBUTION WIDTH 16.3 % (11.5-14.5)
[2025-05-02 07:52] LABS: BANDS% (MANUAL) 4.0 % (0-10); LYMPHOCYTES % (MANUAL) 11.0 % (21-51); METAMYLEOCYTES% (MANUAL) 1.0 % (0-0); MONOCYTES % (MANUAL) 3.0 % (2-12); NEUTROPHILS % (MANUAL) 81.0 % (42-75); PLATELET ESTIMATE NORMAL
--- NOTE | 2025-05-02 09:56 | PROGRESS NOTE ---
Daily Progress Note Providers to CC Chief complaint, shortness of breath, improving ~ Central Line/PICC still needed: No Mathis-Non Protocol Mathis Indications Met/Not Met: F/C Indications Not Met Antibiotic Timeout Antibiotic Ordered?: Yes MRSA Education MRSA Education Provided to pt: Yes Subjective As above Objective Vital Signs Date Time Temp Pulse Resp B/P (MAP) Pulse Ox O2 Delivery O2 Flow Rate FiO2 05/02/25 07:52 73 18 Nasal Cannula 2.0 05/02/25 07:41 92 28 05/01/25 22:00 97.8 139/70 (93) Vital signs, stable ,afebrile. Pulse Oximetry reflects adequate oxygenation 2 L oxygen nasal cannula General: well developed, well nourished. Awake , alert, and oriented x4, resting comfortably in the bed, in no acute distress . Skin: Warm, dry, no pallor, no rash or petechiae. HEENT: Atraumatic, normocephalic, EOMI, anicteric sclera B; pink conjunctiva; PERRLA, normal oropharynx, moist oral and nasal mucosa. Tympanic membrane , nose , throat clear. Neck: Trachea midline. Supple, full range of motion, no JVD, bruit , hepatojugular reflex , lymphadenopathy or masses, or other lesions Cardiac: Regular rhythm, regular rate no murmurs, rubs, or gallops. Normal S1 and S2, no S3 noticed. PMI is normal. Respiratory: Equal breath sounds bilaterally, no tachypnea; lungs clear to auscultation bilaterally, no wheezing ,rub or rales, or crackles. Chest wall is symmetric and without deformity. No signs of trauma. Chest wall is nontender. No signs of respiratory distress. Resonance is normal upon percussion bilaterally. Gastrointestinal: Abdomen symmetric, non-distended, soft, non-tender, normal bowel sounds x4 quadrant, normoactive, no hepatosplenomegaly , no masses , no bruit, no flank pain bilaterally. No voluntary guarding, rebound, or rigidity. No tenderness to percussion. No pulsatile masses. Equal femoral pulses. No Amin's sign or McBurney point tenderness. Back; no CVA tenderness bilaterally, no deformities. Neck and back are without deformity as well. No tenderness noted on palpation of the spinous processes. Spinous processes are midline. Cervical, thoracic, and lumbar paraspinal muscles are not tender and are without spasm. Musculoskeletal: Extremities, normal range of motion, non-tender, muscle strength 5/5 x 4. Negative Homans signs bilaterally on lower extremity. Distal pulses full symmetrical, no clubbing, cyanosis , edema. Neurological: Speech is clear, alert, and oriented x 4. No motor or sensory deficit, deep tendon reflexes normal, cerebellar intact. Cranial nerves II-XII intact. Psych: Alert and or appropriate, normal affect. Vascular: Good distal pulses, which are equal x4; capillary refill less than 2 seconds. Lymphatic, no lymphadenopathy. Result Diagram: 05/02/25 0435 05/01/25 0448 Coagulation Studies Laboratory Tests Test 04/24/25 06:05 D-Dimer 0.71 MG/L FEU (0-0.50) H D-Dimer Comment Problem\Assessment\Plan Patient is 44-year-old female who currently lives in [facility] health unit in [place]. Patient is conserved in her conservator number is in her name is Leti [facility]. Patient was brought from assisted because of low oxygen saturation ( between 84-90 percent ). Patient is admitted for shortness of breaths in possible asthma exacerbation. Assessment & Plan Acute COPD/asthma exacerbation Tobacco abuse -CTA negative PE, pBNP wnl, TTE LVEF 55-60%, no significant VHD, trace circumferential pericardial effusion without evidence of hemodynamic compromise -04/25: desatted to 86% with ambulation, steroid dose adjusted, decreased dose today, start scheduled bronchodilator, supplemental oxygen, empirical abx -04/26-05/01: abx course finished, pending placement We will repeat chest x-ray now Schizophrenia Anxiety disorder -continue home olanzapine Code status: Full Code DVT/VTE Prophylaxis: heparin Sepsis Screening Reassessment Date: May 02, 2025 Date of Service: May 02, 2025 Billing Provider: ALAINA TIAN MD Common Visit Codes: [id number] INP/OBS CARE(HIGH) ALAINA TIAN MD May 02, 2025 09:56
--- NOTE | 2025-05-02 19:29 | RADIOLOGY REPORT ---
CHEST RADIOGRAPH REASON FOR EXAM: Shortness of breath COMPARISON: 04/23/2025 TECHNIQUE: One view of the chest is provided FINDINGS: The cardiomediastinal silhouette is within normal limits for size. There is left basilar ai rspace disease. There is small left pleural effusion. There is no pneumothorax. No acute osseous abno rmality is identified. IMPRESSION: Left basilar airspace disease. Small left pleural effusion. Correlate clinically for possible pneum onia.
[2025-05-03] VITALS (8 sets, daily range): BP systolic 112–148; BP diastolic 70–79; PULSE 63–76; RESP 14–21; TEMP 98; O2SAT 90–98
[2025-05-03 04:57] LABS: MEAN PLATELET VOLUME 7.9 FL (7.4-10.4); RED CELL DISTRIBUTION WIDTH 15.8 % (11.5-14.5)
--- NOTE | 2025-05-03 11:25 | PROGRESS NOTE ---
Daily Progress Note Providers to CC Please disregard this entry, duplicate ~ Central Line/PICC still needed: No Mathis-Non Protocol Mathis Indications Met/Not Met: F/C Indications Not Met Antibiotic Timeout Antibiotic Ordered?: No MRSA Education MRSA Education Provided to pt: No Objective Vital Signs Date Time Temp Pulse Resp B/P (MAP) Pulse Ox O2 Delivery O2 Flow Rate FiO2 05/03/25 08:00 19 98 Nasal Cannula 2.0 05/03/25 07:21 69 05/03/25 07:12 28 05/03/25 06:51 98.0 146/79 (101) Result Diagram: 05/03/25 0428 05/01/25 0448 Coagulation Studies Laboratory Tests Test 04/24/25 06:05 D-Dimer 0.71 MG/L FEU (0-0.50) H D-Dimer Comment Problem\Assessment\Plan Patient is 44-year-old female who currently lives in [facility] health unit in [place]. Patient is conserved in her conservator number is in her name is Leti [facility] Patient was [facility] from skilled nursing because of low oxygen saturation ( between 84-90 percent ). Patient is admitted for shortness of breaths in possible asthma exacerbation. Assessment & Plan Acute COPD/asthma exacerbation Tobacco abuse -CTA negative PE, pBNP wnl, TTE LVEF 55-60%, no significant VHD, trace circumferential pericardial effusion without evidence of hemodynamic compromise -04/25: desatted to 86% with ambulation, steroid dose adjusted, decreased dose today, start scheduled bronchodilator, supplemental oxygen, empirical abx -04/26-05/01: abx course finished, pending placement We will repeat chest x-ray now Schizophrenia Anxiety disorder -continue home olanzapine Code status: Full Code DVT/VTE Prophylaxis: heparin Date of Service: May 03, 2025 Billing Provider: ALAINA TIAN MD Common Visit Codes: NOT BILLABLE ALAINA TIAN MD May 03, 2025 11:25
--- NOTE | 2025-05-03 16:16 | PROGRESS NOTE ---
Progress Note Dictate Providers to CC ~ Central Line/PICC still needed: N\\A Antibiotic Ordered?: No MRSA Education MRSA Education Provided to pt: No Objective Vitals Vital Signs Date Time Temp Pulse Resp B/P (MAP) Pulse Ox O2 Delivery O2 Flow Rate FiO2 05/03/25 08:00 19 98 Nasal Cannula 2.0 05/03/25 07:21 69 05/03/25 07:12 28 05/03/25 06:51 98.0 146/79 (101) Lab Results: 05/03/25 0428 05/01/25 0448 Coagulation Studies Laboratory Tests Test 04/24/25 06:05 D-Dimer 0.71 MG/L FEU (0-0.50) H D-Dimer Comment Psychiatrist's Progress Note Date of Service: May 03, 2025 Notes PATIENT NAME: ANANDA SUE DATE OF EVALUATION: MAY 03, 2025 CONSULTING PROVIDER: CLIFF REYNOSO CONSULTING SERVICE: PSYCHIATRY MANAGING MEDICAL PROVIDER: ALAINA TIAN MD REASON FOR CONSULTATION: MEDICATION MANAGEMENT ASSESSMENT: The patient was interviewed in designated room on surgical unit. The patient was actively resting in bed with her eyes open. The patient a 44-year-old female. The patient endorses "I am doing good.' the patient endorses she was admitted due to "lack of oxygen." The patient endorses she is currently living at [facility] on the mental health unit and she currently sees a nurse practitioner and was last seen last week before being admitted to [facility]. The patient endorses she was born and raised in [place]. Single. Three children. Which were removed from her cares due to her being mentally unstable. At the time of the removal she had 2-year-old, 1-year-old in a . The patient endorses she attempted suicide at the age of 18 years via jumping from a bridge. Denies SI. Denies HI. Denies AVH. The patient endorses she has had three psychiatric mental health hospitalizations in the past. The patient endorses she is conserved as of October 2024. The patient endorses she has a mental health history of schizophrenia and anxiety disorder. The patient endorses adequate sleep and food intake. The patient is stable no acute distress noted. The patient as calm, cooperative, and engaged during session. Per staff report patient is medication compliant. The patient appears stable and denies any worsening mental health symptoms. APPEARANCE: APPROPRIATE.DRESSED IN HOSPITAL GOWN. OBESE AVERAGE HEIGHT FEMALE SPEECH: NORMAL RATE, NORMAL TONE EYE CONTACT: NORMAL MOTOR ACTIVITY: NORMAL AFFECT: FLAT MOOD: "I AM DOING GOOD" ORIENTATION IMPAIRMENT: NONE MEMORY IMPAIRMENT: NONE ATTENTION: FULL HALLUCINATIONS: NONE SUICIDALITY: NONE HOMICIDALITY: NONE DELUSIONS:NONE BEHAVIORS: COOPERATIVE INSIGHT: FAIR JUDGMENT: FAIR DIAGNOSIS SCHIZOPHRENIA ANXIETY DISORDER RECOMMENDATIONS Continue HALDOL 10MG PO BID Continue PALIPERIDONE PALMITATE INJECTION 156 MG IM Q 30 DAYS DUE 05/07/2025 Continue HYDROXYZINE 50 MG P.O. DAILY Continue FLUOXETINE 20 MG P.O. Q.A.M. Total Time Spent 60 minutes REVIEW OF Clinical notes [X ] RN notes [X] PCT documentation [X] SW notes Labs [ X] Medications [X] Care trends/care activity [X] Vitals [X] DISCUSSION WITH medical claims specialist [X] Staff SW Treatment Team Provider Sign Out Discharge PSYCHIATRY WILL SIGN OFF AT THIS TIME. FOLLOW-UP OUTPATIENT. CODING VISIT-PSYCHIATRY Date of Service: May 03, 2025 Billing Provider: RADHA SAWANT APRN Psych Common Visit Codes: CONSULT ONLY RADHA SAWANT APRN May 03, 2025 16:16
--- NOTE | 2025-05-03 18:23 | PROGRESS NOTE ---
Daily Progress Note Providers to CC Feels better today, still coughing shortness of breath present ~ Central Line/PICC still needed: No Mathis-Non Protocol Mathis Indications Met/Not Met: F/C Indications Not Met Antibiotic Timeout Antibiotic Ordered?: Yes MRSA Education MRSA Education Provided to pt: Yes Subjective As above Objective Vital Signs Date Time Temp Pulse Resp B/P (MAP) Pulse Ox O2 Delivery O2 Flow Rate FiO2 05/03/25 08:00 19 98 Nasal Cannula 2.0 05/03/25 07:21 69 05/03/25 07:12 28 05/03/25 06:51 98.0 146/79 (101) Vital signs, stable ,afebrile. Pulse Oximetry reflects adequate oxygenation. General: well developed, well nourished. Awake , alert, and oriented x4, resting comfortably in the bed, in no acute distress . Skin: Warm, dry, no pallor, no rash or petechiae. HEENT: Atraumatic, normocephalic, EOMI, anicteric sclera B; pink conjunctiva; PERRLA, normal oropharynx, moist oral and nasal mucosa. Tympanic membrane , nose , throat clear. Neck: Trachea midline. Supple, full range of motion, no JVD, bruit , hepatojugular reflex , lymphadenopathy or masses, or other lesions Cardiac: Regular rhythm, regular rate no murmurs, rubs, or gallops. Normal S1 and S2, no S3 noticed. PMI is normal. Respiratory: Equal breath sounds bilaterally, no tachypnea; lungs clear to auscultation bilaterally, no wheezing ,rub or rales, or crackles. Chest wall is symmetric and without deformity. No signs of trauma. Chest wall is nontender. No signs of respiratory distress. Resonance is normal upon percussion bilaterally. Gastrointestinal: Abdomen symmetric, non-distended, soft, non-tender, normal bowel sounds x4 quadrant, normoactive, no hepatosplenomegaly , no masses , no bruit, no flank pain bilaterally. No voluntary guarding, rebound, or rigidity. No tenderness to percussion. No pulsatile masses. Equal femoral pulses. No Amin's sign or McBurney point tenderness. Back; no CVA tenderness bilaterally, no deformities. Neck and back are without deformity as well. No tenderness noted on palpation of the spinous processes. Spinous processes are midline. Cervical, thoracic, and lumbar paraspinal muscles are not tender and are without spasm. : normal external genitalia, without lesions, swelling, masses or tenderness. Musculoskeletal: Extremities, normal range of motion, non-tender, muscle strength 5/5 x 4. Negative Homans signs bilaterally on lower extremity. Distal pulses full symmetrical, no clubbing, cyanosis , edema. Neurological: Speech is clear, alert, and oriented x 4. No motor or sensory deficit, deep tendon reflexes normal, cerebellar intact. Cranial nerves II-XII intact. Psych: Alert and or appropriate, normal affect. Vascular: Good distal pulses, which are equal x4; capillary refill less than 2 seconds. Lymphatic, no lymphadenopathy. Result Diagram: 05/03/25 0428 05/01/25 0448 Coagulation Studies Laboratory Tests Test 04/24/25 06:05 D-Dimer 0.71 MG/L FEU (0-0.50) H D-Dimer Comment Problem\Assessment\Plan Patient is 44-year-old female who [facility] in [place]. Patient is conserved in her conservator number is in her name is Leti [facility]. [facility] saturation ( between 84-90 percent ). Patient is admitted for shortness of breaths in possible asthma exacerbation. Assessment & Plan Acute COPD/asthma exacerbation , on IV antibiotics, Solu-Medrol, SVN with DuoNeb Bilateral pleural effusion, on IV Lasix Tobacco abuse -CTA negative PE, pBNP wnl, TTE LVEF 55-60%, no significant VHD, trace circumferential pericardial effusion without evidence of hemodynamic compromise -04/25: desatted to 86% with ambulation, steroid dose adjusted, decreased dose today, start scheduled bronchodilator, supplemental oxygen, empirical abx -04/26-05/01: abx course finished, pending placement We will repeat chest x-ray now Schizophrenia Anxiety disorder -continue home olanzapine Code status: Full Code DVT/VTE Prophylaxis: heparin Patient was evaluated by RN for needs of home oxygen, patient does not qualify for home oxygen, since she is holding her oxygenation fine. Sepsis Screening Reassessment Date: May 03, 2025 Date of Service: May 03, 2025 Billing Provider: ALAINA TIAN MD Common Visit Codes: [id number] INP/OBS CARE(HIGH) ALAINA TIAN MD May 03, 2025 18:23
[2025-05-03] MEDS: levoFLOXACIN-Levaquin 750MG/D5 150 ML IV SCH (20:55)
[2025-05-04] VITALS (23 sets, daily range): BP systolic 112–152; BP diastolic 66–94; PULSE 68–95; RESP 14–18; TEMP 97.3–97.8; O2SAT 89–99
--- NOTE | 2025-05-04 11:45 | PROGRESS NOTE ---
Daily Progress Note Providers to CC ~ chief complaint, bilateral lower extremity edema, less cough less shortness of breath Central Line/PICC still needed: No Mathis-Non Protocol Mathis Indications Met/Not Met: F/C Indications Not Met Antibiotic Timeout Antibiotic Ordered?: Yes MRSA Education MRSA Education Provided to pt: Yes Subjective As above Objective Vital Signs Date Time Temp Pulse Resp B/P (MAP) Pulse Ox O2 Delivery O2 Flow Rate FiO2 05/04/25 10:56 16 92 Nasal Cannula 2.0 28 05/04/25 10:00 97.4 75 152/84 (106) Vital signs, stable ,afebrile. Pulse Oximetry reflects adequate oxygenation on 2 L oxygen nasal cannula General: well developed, well nourished. Awake , alert, and oriented x4, resting comfortably in the bed, in no acute distress . Skin: Warm, dry, no pallor, no rash or petechiae. HEENT: Atraumatic, normocephalic, EOMI, anicteric sclera B; pink conjunctiva; PERRLA, normal oropharynx, moist oral and nasal mucosa. Tympanic membrane , nose , throat clear. Neck: Trachea midline. Supple, full range of motion, no JVD, bruit , hepatojugular reflex , lymphadenopathy or masses, or other lesions Cardiac: Regular rhythm, regular rate no murmurs, rubs, or gallops. Normal S1 and S2, no S3 noticed. PMI is normal. Respiratory: Equal breath sounds bilaterally, no tachypnea; lungs clear to auscultation bilaterally, no wheezing ,rub or rales, or crackles. Chest wall is symmetric and without deformity. No signs of trauma. Chest wall is nontender. No signs of respiratory distress. Resonance is normal upon percussion bilaterally. Gastrointestinal: Abdomen symmetric, non-distended, soft, non-tender, normal bowel sounds x4 quadrant, normoactive, no hepatosplenomegaly , no masses , no bruit, no flank pain bilaterally. No voluntary guarding, rebound, or rigidity. No tenderness to percussion. No pulsatile masses. Equal femoral pulses. No Amin's sign or McBurney point tenderness. Back; no CVA tenderness bilaterally, no deformities. Neck and back are without deformity as well. No tenderness noted on palpation of the spinous processes. Spinous processes are midline. Cervical, thoracic, and lumbar paraspinal muscles are not tender and are without spasm. Musculoskeletal: Extremities, normal range of motion, non-tender, muscle strength 5/5 x 4. Negative Homans signs bilaterally on lower extremity. Distal pulses full symmetrical, no clubbing, cyanosis, bilateral lower extremity plus two edema of the ankle Neurological: Speech is clear, alert, and oriented x 4. No motor or sensory deficit, deep tendon reflexes normal, cerebellar intact. Cranial nerves II-XII intact. Psych: Alert and or appropriate, normal affect. Vascular: Good distal pulses, which are equal x4; capillary refill less than 2 seconds. Lymphatic, no lymphadenopathy. Result Diagram: 05/03/25 0428 05/01/25 0448 Coagulation Studies Laboratory Tests Test 04/24/25 06:05 D-Dimer 0.71 MG/L FEU (0-0.50) H D-Dimer Comment Problem\Assessment\Plan Patient is 44-year-old female who currently lives in [facility] in [place]. Patient is conserved in her conservator number is in her name is Leti [facility]. [facility] because of low oxygen saturation ( between 84-90 percent ). Patient is admitted for shortness of breaths in possible asthma exacerbation. Assessment & Plan Acute COPD/asthma exacerbation , on IV antibiotics, Solu-Medrol, SVN with DuoNeb Bilateral pleural effusion, on IV Lasix Tobacco abuse -CTA negative PE, pBNP wnl, TTE LVEF 55-60%, no significant VHD, trace circumferential pericardial effusion without evidence of hemodynamic compromise -04/25: desatted to 86% with ambulation, steroid dose adjusted, decreased dose today, start scheduled bronchodilator, supplemental oxygen, empirical abx -04/26-05/01: abx course finished, pending placement We will repeat chest x-ray now Schizophrenia Anxiety disorder -continue home olanzapine Code status: Full Code DVT/VTE Prophylaxis: heparin Patient was evaluated by RN for needs of home oxygen, patient qualified for home oxygen Awaiting placement to rehab facility Sepsis Screening Reassessment Date: May 04, 2025 Date of Service: May 04, 2025 Billing Provider: ALAINA TIAN MD Common Visit Codes: [id number] INP/OBS CARE(HIGH) ALAINA TIAN MD May 04, 2025 11:45
[2025-05-04 16:51] LABS: MEAN PLATELET VOLUME 7.6 FL (7.4-10.4); RED CELL DISTRIBUTION WIDTH 16.2 % (11.5-14.5)
[2025-05-04 17:10] LABS: CREATININE 0.98 MG/DL (0.40-0.90); TOTAL CARBON DIOXIDE 31.2 MMOL/L (24-32); eCRCL 65 ML/MIN; eGFR 61 ML/MIN
[2025-05-04 17:22] LABS: OSMOLALITY 218 MOSM/K (280-300)
[2025-05-04 17:29] LABS: PRO BRAIN NATRIURETIC PEPTIDE 33 PG/ML (0-125)
[2025-05-04] MEDS ORDERED: potassium Cl 20 mEq SR tablet PO PRN (17:40)
[2025-05-04] MEDS ORDERED: magnesium sulf-water 4G/100mL 100 ML IV PRN (17:40)
[2025-05-04] MEDS ORDERED: magnesium Cl slow-release 64mg tablet PO PRN (17:40)
[2025-05-04] MEDS ORDERED: potassium Cl 40MEQ/1/2NS 520ml 520 ML IV PRN (17:40)
[2025-05-04] MEDS ORDERED: magnesium sulf-water 2g/50mL 50 ML IV PRN (17:40)
[2025-05-04] MEDS: potassium Cl 20 mEq SR tablet PO PRN (18:03)
[2025-05-04 19:06] LABS: LEUKOCYTE ESTERASE ,URINE NEGATIVE (Neg); NITRITES, URINE NEGATIVE (Neg); OCCULT BLOOD,URINE LARGE (Neg)
[2025-05-04 19:16] LABS: UA COLLECTION TYPE NON-SPECIFIED
[2025-05-04 19:20] LABS: MUCUS STRANDS FEW /LPF (Neg); SQUAMOUS EPITHELIAL CELL,UR MODERATE /LPF (FEW)
[2025-05-05] VITALS (9 sets, daily range): BP systolic 115–156; BP diastolic 70–82; PULSE 79–102; RESP 16–20; TEMP 97.5–97.8; O2SAT 90–94
[2025-05-05 12:22] LABS: MEAN PLATELET VOLUME 8.2 FL (7.4-10.4); RED CELL DISTRIBUTION WIDTH 15.9 % (11.5-14.5)
[2025-05-05 12:31] LABS: CREATININE 0.89 MG/DL (0.40-0.90); TOTAL CARBON DIOXIDE 33.1 MMOL/L (24-32); eCRCL 72 ML/MIN; eGFR 69 ML/MIN
--- NOTE | 2025-05-05 14:55 | PROGRESS NOTE ---
Daily Progress Note Providers to CC ~ feels better today, less swelling bilateral lower extremity Central Line/PICC still needed: No Mathis-Non Protocol Mathis Indications Met/Not Met: F/C Indications Not Met Antibiotic Timeout Antibiotic Ordered?: Yes MRSA Education MRSA Education Provided to pt: Yes Subjective As above Objective Vital Signs Date Time Temp Pulse Resp B/P (MAP) Pulse Ox O2 Delivery O2 Flow Rate FiO2 05/05/25 10:00 97.5 100 17 115/73 (87) 90 Nasal Cannula 2.0 05/04/25 20:37 36 Vital signs, stable ,afebrile. Pulse Oximetry reflects adequate oxygenation on 2 L oxygen nasal cannula General: well developed, well nourished. Awake , alert, and oriented x4, resting comfortably in the bed, in no acute distress . Skin: Warm, dry, no pallor, no rash or petechiae. HEENT: Atraumatic, normocephalic, EOMI, anicteric sclera B; pink conjunctiva; PERRLA, normal oropharynx, moist oral and nasal mucosa. Tympanic membrane , nose , throat clear. Neck: Trachea midline. Supple, full range of motion, no JVD, bruit , hepatojugular reflex , lymphadenopathy or masses, or other lesions Cardiac: Regular rhythm, regular rate no murmurs, rubs, or gallops. Normal S1 and S2, no S3 noticed. PMI is normal. Respiratory: Equal breath sounds bilaterally, no tachypnea; lungs clear to auscultation bilaterally, no wheezing ,rub or rales, or crackles. Chest wall is symmetric and without deformity. No signs of trauma. Chest wall is nontender. No signs of respiratory distress. Resonance is normal upon percussion bilaterally. Gastrointestinal: Abdomen symmetric, non-distended, soft, non-tender, normal bowel sounds x4 quadrant, normoactive, no hepatosplenomegaly , no masses , no bruit, no flank pain bilaterally. No voluntary guarding, rebound, or rigidity. No tenderness to percussion. No pulsatile masses. Equal femoral pulses. No Amin's sign or McBurney point tenderness. Back; no CVA tenderness bilaterally, no deformities. Neck and back are without deformity as well. No tenderness noted on palpation of the spinous processes. Spinous processes are midline. Cervical, thoracic, and lumbar paraspinal muscles are not tender and are without spasm. Musculoskeletal: Extremities, normal range of motion, non-tender, muscle strength 5/5 x 4. Negative Homans signs bilaterally on lower extremity. Distal pulses full symmetrical, no clubbing, cyanosis , bilateral lower extremity plus two edema of the ankle Neurological: Speech is clear, alert, and oriented x 4. No motor or sensory deficit, deep tendon reflexes normal, cerebellar intact. Cranial nerves II-XII intact. Psych: Alert and or appropriate, normal affect. Vascular: Good distal pulses, which are equal x4; capillary refill less than 2 seconds. Lymphatic, no lymphadenopathy. Result Diagram: 05/05/25 1111 05/05/25 1111 Coagulation Studies Laboratory Tests Test 04/24/25 06:05 D-Dimer 0.71 MG/L FEU (0-0.50) H D-Dimer Comment Problem\Assessment\Plan Patient is 44-year-old female who currently lives in [facility] in [place]. Patient is conserved in her conservator number is in her name is Leti [facility]. Patient [facility] from [facility] because of low oxygen saturation ( between 84-90 percent ). Patient is admitted for shortness of breaths in possible asthma exacerbation. Assessment & Plan Acute COPD/asthma exacerbation , on IV antibiotics, Solu-Medrol, SVN with DuoNeb Bilateral pleural effusion, on IV Lasix Tobacco abuse -CTA negative PE, pBNP wnl, TTE LVEF 55-60%, no significant VHD, trace circumferential pericardial effusion without evidence of hemodynamic compromise -04/25: desatted to 86% with ambulation, steroid dose adjusted, decreased dose today, start scheduled bronchodilator, supplemental oxygen, empirical abx -04/26-05/01: abx course finished, pending placement We will repeat chest x-ray now Schizophrenia Anxiety disorder -continue home olanzapine Code status: Full Code DVT/VTE Prophylaxis: heparin Patient was evaluated by RN for needs of home oxygen, patient qualified for home oxygen Awaiting placement to rehab facility Sepsis Screening Reassessment Date: May 05, 2025 Date of Service: May 05, 2025 Billing Provider: ALAINA TIAN MD Common Visit Codes: [id number] INP/OBS CARE(HIGH) ALAINA TIAN MD May 05, 2025 14:55
[2025-05-06] VITALS (15 sets, daily range): BP systolic 123–181; BP diastolic 58–98; PULSE 88–112; RESP 16–18; TEMP 97.4–98.4; O2SAT 89–98
[2025-05-06] MEDS: hydrALAZINE 20mg/ml inj. IV PRN (06:02)
[2025-05-06 11:19] LABS: MEAN PLATELET VOLUME 8.0 FL (7.4-10.4); RED CELL DISTRIBUTION WIDTH 16.1 % (11.5-14.5)
[2025-05-06 11:24] LABS: CREATININE 1.12 MG/DL (0.40-0.90); TOTAL CARBON DIOXIDE 32.1 MMOL/L (24-32); eCRCL 57 ML/MIN; eGFR 53 ML/MIN
--- NOTE | 2025-05-06 17:22 | PROGRESS NOTE ---
Daily Progress Note Providers to CC ~ feels better today, less shortness of breath less cough Central Line/PICC still needed: No Mathis-Non Protocol Mtahis Indications Met/Not Met: F/C Indications Not Met Antibiotic Timeout Antibiotic Ordered?: Yes MRSA Education MRSA Education Provided to pt: Yes Subjective As above Objective Vital Signs Date Time Temp Pulse Resp B/P (MAP) Pulse Ox O2 Delivery O2 Flow Rate FiO2 05/06/25 15:32 103 17 Room Air 0.0 05/06/25 15:27 98 21 05/06/25 10:00 97.4 137/76 (96) Vital signs, stable ,afebrile. Pulse Oximetry reflects adequate oxygenation. General: well developed, well nourished. Awake , alert, and oriented x4, resting comfortably in the bed, in no acute distress . Skin: Warm, dry, no pallor, no rash or petechiae. HEENT: Atraumatic, normocephalic, EOMI, anicteric sclera B; pink conjunctiva; PERRLA, normal oropharynx, moist oral and nasal mucosa. Tympanic membrane , nose , throat clear. Neck: Trachea midline. Supple, full range of motion, no JVD, bruit , hepatojugular reflex , lymphadenopathy or masses, or other lesions Cardiac: Regular rhythm, regular rate no murmurs, rubs, or gallops. Normal S1 and S2, no S3 noticed. PMI is normal. Respiratory: Equal breath sounds bilaterally, no tachypnea; lungs clear to auscultation bilaterally, no wheezing ,rub or rales, or crackles. Chest wall is symmetric and without deformity. No signs of trauma. Chest wall is nontender. No signs of respiratory distress. Resonance is normal upon percussion bilaterally. Gastrointestinal: Abdomen symmetric, non-distended, soft, non-tender, normal bowel sounds x4 quadrant, normoactive, no hepatosplenomegaly , no masses , no bruit, no flank pain bilaterally. No voluntary guarding, rebound, or rigidity. No tenderness to percussion. No pulsatile masses. Equal femoral pulses. No Amin's sign or McBurney point tenderness. Back; no CVA tenderness bilaterally, no deformities. Neck and back are without deformity as well. No tenderness noted on palpation of the spinous processes. Spinous processes are midline. Cervical, thoracic, and lumbar paraspinal muscles are not tender and are without spasm. Musculoskeletal: Extremities, normal range of motion, non-tender, muscle strength 5/5 x 4. Negative Homans signs bilaterally on lower extremity. Distal pulses full symmetrical, no clubbing, cyanosis , edema. Neurological: Speech is clear, alert, and oriented x 4. No motor or sensory deficit, deep tendon reflexes normal, cerebellar intact. Cranial nerves II-XII intact. Psych: Alert and or appropriate, normal affect. Vascular: Good distal pulses, which are equal x4; capillary refill less than 2 seconds. Lymphatic, no lymphadenopathy. Result Diagram: 05/06/25 1036 05/06/25 1036 Coagulation Studies Laboratory Tests Test 04/24/25 06:05 D-Dimer 0.71 MG/L FEU (0-0.50) H D-Dimer Comment Problem\Assessment\Plan Patient is 44-year-old female who currently lives in [facility] in [place]. Patient is conserved in her conservator number is in her name is Leti [facility]. [facility] saturation ( between 84-90 percent ). Patient is admitted for shortness of breaths in possible asthma exacerbation. Assessment & Plan Acute COPD/asthma exacerbation , on IV antibiotics, Solu-Medrol, SVN with DuoNeb Bilateral pleural effusion, o Hyponatremia Hypokalemia, we will replace electrolytes Tobacco abuse -CTA negative PE, pBNP wnl, TTE LVEF 55-60%, no significant VHD, trace circumferential pericardial effusion without evidence of hemodynamic compromise -04/25: desatted to 86% with ambulation, steroid dose adjusted, decreased dose today, start scheduled bronchodilator, supplemental oxygen, empirical abx -04/26-05/01: abx course finished, pending placement We will repeat chest x-ray now Schizophrenia Anxiety disorder -continue home olanzapine Code status: Full Code DVT/VTE Prophylaxis: heparin Patient was evaluated by RN for needs of home oxygen, patient qualified for home oxygen Awaiting placement to rehab facility Sepsis Screening Reassessment Date: May 06, 2025 Date of Service: May 06, 2025 Billing Provider: ALAINA TIAN MD Common Visit Codes: [id number] INP/OBS CARE(HIGH) ALAINA TIAN MD May 06, 2025 17:22
[2025-05-06] MEDS: magnesium hydroxide 30ml (MOM) UD suspension PO PRN (17:37)
--- NOTE | 2025-05-06 18:38 | RADIOLOGY REPORT ---
CHEST RADIOGRAPH REASON FOR EXAM: sob COMPARISON: DI CHEST,SINGLE VIEW on DOS: 05/02/25, DI CHEST,TWO VIEWS on DOS: 04/23/25 TECHNIQUE: One view of the chest is provided FINDINGS: The cardiomediastinal silhouette is stable. Evaluation is degraded by patient rotation. The re is left basilar airspace disease, decreased compared with the prior study. There is small left ple ural effusion. There is no pneumothorax. IMPRESSION: Improvement in left basilar airspace disease. Small left pleural effusion.
[2025-05-06] MEDS: docusate sod 100mg capsule PO SCH (21:58)
[2025-05-07] VITALS (14 sets, daily range): BP systolic 135–150; BP diastolic 71–78; PULSE 70–98; RESP 16–20; TEMP 97.6–98.3; O2SAT 90–96
[2025-05-07 11:42] LABS: MEAN PLATELET VOLUME 7.6 FL (7.4-10.4); RED CELL DISTRIBUTION WIDTH 15.9 % (11.5-14.5)
[2025-05-07 11:52] LABS: CREATININE 0.96 MG/DL (0.40-0.90); TOTAL CARBON DIOXIDE 32.5 MMOL/L (24-32); eCRCL 67 ML/MIN; eGFR 63 ML/MIN
--- NOTE | 2025-05-07 18:40 | PROGRESS NOTE ---
Daily Progress Note Providers to CC Feels better today less cough less shortness of breath less lower extremity edema ~ Central Line/PICC still needed: No Mathis-Non Protocol Mathis Indications Met/Not Met: F/C Indications Not Met Antibiotic Timeout Antibiotic Ordered?: Yes MRSA Education MRSA Education Provided to pt: Yes Subjective As above Objective Vital Signs Date Time Temp Pulse Resp B/P (MAP) Pulse Ox O2 Delivery O2 Flow Rate FiO2 05/07/25 16:40 87 20 Room Air 0.0 21 05/07/25 16:32 91 05/07/25 11:00 97.6 137/71 (93) Vital signs, stable ,afebrile. Pulse Oximetry reflects adequate oxygenation. General: well developed, well nourished. Awake , alert, and oriented x4, resting comfortably in the bed, in no acute distress . Skin: Warm, dry, no pallor, no rash or petechiae. HEENT: Atraumatic, normocephalic, EOMI, anicteric sclera B; pink conjunctiva; PERRLA, normal oropharynx, moist oral and nasal mucosa. Tympanic membrane , nose , throat clear. Neck: Trachea midline. Supple, full range of motion, no JVD, bruit , hepatojugular reflex , lymphadenopathy or masses, or other lesions Cardiac: Regular rhythm, regular rate no murmurs, rubs, or gallops. Normal S1 and S2, no S3 noticed. PMI is normal. Respiratory: Equal breath sounds bilaterally, no tachypnea; lungs clear to auscultation bilaterally, no wheezing ,rub or rales, or crackles. Chest wall is symmetric and without deformity. No signs of trauma. Chest wall is nontender. No signs of respiratory distress. Resonance is normal upon percussion bilaterally. Gastrointestinal: Abdomen symmetric, non-distended, soft, non-tender, normal bowel sounds x4 quadrant, normoactive, no hepatosplenomegaly , no masses , no bruit, no flank pain bilaterally. No voluntary guarding, rebound, or rigidity. No tenderness to percussion. No pulsatile masses. Equal femoral pulses. No Amin's sign or McBurney point tenderness. Back; no CVA tenderness bilaterally, no deformities. Neck and back are without deformity as well. No tenderness noted on palpation of the spinous processes. Spinous processes are midline. Cervical, thoracic, and lumbar paraspinal muscles are not tender and are without spasm. Musculoskeletal: Extremities, normal range of motion, non-tender, muscle strength 5/5 x 4. Negative Homans signs bilaterally on lower extremity. Distal pulses full symmetrical, no clubbing, cyanosis , edema. Neurological: Speech is clear, alert, and oriented x 4. No motor or sensory deficit, deep tendon reflexes normal, cerebellar intact. Cranial nerves II-XII intact. Psych: Alert and or appropriate, normal affect. Vascular: Good distal pulses, which are equal x4; capillary refill less than 2 seconds. Lymphatic, no lymphadenopathy. Result Diagram: 05/07/25 1119 05/07/25 1119 Coagulation Studies Laboratory Tests Test 04/24/25 06:05 D-Dimer 0.71 MG/L FEU (0-0.50) H D-Dimer Comment Problem\Assessment\Plan Patient is 44-year-old female who currently lives in [facility] in [place]. Patient is conserved in her conservator number is in her name is Leti [facility] ( between 84-90 percent ). Patient is admitted for shortness of breaths in possible asthma exacerbation. Assessment & Plan Acute COPD/asthma exacerbation , on IV antibiotics, Solu-Medrol, SVN with DuoNeb, on room air today Bilateral pleural effusion, small, Lasix IV p.r.n. Hyponatremia on IV fluids Hypokalemia, we will replace electrolytes -CTA negative PE, pBNP wnl, TTE LVEF 55-60%, no significant VHD, trace circumferential pericardial effusion without evidence of hemodynamic compromise -04/25: desatted to 86% with ambulation, steroid dose adjusted, decreased dose today, start scheduled bronchodilator, supplemental oxygen, empirical abx -04/26-05/01: abx course finished, pending placement We will repeat chest x-ray now Schizophrenia Anxiety disorder -continue home olanzapine Code status: Full Code DVT/VTE Prophylaxis: heparin Patient was evaluated by RN for needs of home oxygen, patient qualified for home oxygen Awaiting placement to rehab facility Date of Service: May 07, 2025 Billing Provider: ALAINA TIAN MD Common Visit Codes: [id number] INP/OBS CARE(HIGH) ALAINA TIAN MD May 07, 2025 18:40
[2025-05-07] MEDS: HYDROcodone/acetaminophen 5mg/325mg tablet PO PRN (19:55)
[2025-05-07] MEDS: paliperidone palmitate 156 mg/ml inj.**IM only IM SCH (22:42)
[2025-05-08] VITALS (13 sets, daily range): BP systolic 117–156; BP diastolic 62–84; PULSE 69–112; RESP 16–20; TEMP 97.2–97.9; O2SAT 90–94
[2025-05-08] MEDS ORDERED: mineral oil 133ml enema RC PRN (10:20)
[2025-05-08] MEDS: lactulose 20gm/30ml cup PO ONE (10:50)
[2025-05-08] MEDS: magnesium citrate 296ml oral solution PO ONE (10:51)
[2025-05-08 11:05] LABS: MEAN PLATELET VOLUME 8.2 FL (7.4-10.4); RED CELL DISTRIBUTION WIDTH 16.0 % (11.5-14.5)
[2025-05-08 11:24] LABS: CREATININE 0.81 MG/DL (0.40-0.90); TOTAL CARBON DIOXIDE 28.3 MMOL/L (24-32); eCRCL 79 ML/MIN; eGFR 76 ML/MIN
--- NOTE | 2025-05-08 18:41 | PROGRESS NOTE ---
Daily Progress Note Providers to CC Chief complaint, constipation ~ Central Line/PICC still needed: No Mathis-Non Protocol Mathis Indications Met/Not Met: F/C Indications Not Met Antibiotic Timeout Antibiotic Ordered?: Yes MRSA Education MRSA Education Provided to pt: Yes Subjective As above Objective Vital Signs Date Time Temp Pulse Resp B/P (MAP) Pulse Ox O2 Delivery O2 Flow Rate FiO2 05/08/25 15:47 93 16 Room Air 0.0 05/08/25 15:40 92 21 05/08/25 10:00 97.2 117/68 (84) Vital signs, stable ,afebrile. Pulse Oximetry reflects adequate oxygenation. General: well developed, well nourished. Awake , alert, and oriented x4, resting comfortably in the bed, in no acute distress . Skin: Warm, dry, no pallor, no rash or petechiae. HEENT: Atraumatic, normocephalic, EOMI, anicteric sclera B; pink conjunctiva; PERRLA, normal oropharynx, moist oral and nasal mucosa. Tympanic membrane , nose , throat clear. Neck: Trachea midline. Supple, full range of motion, no JVD, bruit , hepatojugular reflex , lymphadenopathy or masses, or other lesions Cardiac: Regular rhythm, regular rate no murmurs, rubs, or gallops. Normal S1 and S2, no S3 noticed. PMI is normal. Respiratory: Equal breath sounds bilaterally, no tachypnea; lungs clear to auscultation bilaterally, no wheezing ,rub or rales, or crackles. Chest wall is symmetric and without deformity. No signs of trauma. Chest wall is nontender. No signs of respiratory distress. Resonance is normal upon percussion bilaterally. Gastrointestinal: Abdomen symmetric, non-distended, soft, non-tender, normal bowel sounds x4 quadrant, normoactive, no hepatosplenomegaly , no masses , no bruit, no flank pain bilaterally. No voluntary guarding, rebound, or rigidity. No tenderness to percussion. No pulsatile masses. Equal femoral pulses. No Amin's sign or McBurney point tenderness. Back; no CVA tenderness bilaterally, no deformities. Neck and back are without deformity as well. No tenderness noted on palpation of the spinous processes. Spinous processes are midline. Cervical, thoracic, and lumbar paraspinal muscles are not tender and are without spasm. : normal external genitalia, without lesions, swelling, masses or tenderness. Musculoskeletal: Extremities, normal range of motion, non-tender, muscle strength 5/5 x 4. Negative Homans signs bilaterally on lower extremity. Distal pulses full symmetrical, no clubbing, cyanosis , edema. Neurological: Speech is clear, alert, and oriented x 4. No motor or sensory deficit, deep tendon reflexes normal, cerebellar intact. Cranial nerves II-XII intact. Psych: Alert and or appropriate, normal affect. Vascular: Good distal pulses, which are equal x4; capillary refill less than 2 seconds. Lymphatic, no lymphadenopathy. Result Diagram: 05/08/25 1043 05/08/25 1043 Coagulation Studies Laboratory Tests Test 04/24/25 06:05 D-Dimer 0.71 MG/L FEU (0-0.50) H D-Dimer Comment Problem\Assessment\Plan Patient is 44-year-old female who currently lives in [facility] unit in [place]. Patient is conserved in her conservator number is in [facility] Patient was brought from long-term because of low oxygen saturation ( between 84-90 percent ). Patient is admitted for shortness of breaths in possible asthma exacerbation. Assessment & Plan Acute COPD/asthma exacerbation , on IV antibiotics, Solu-Medrol, SVN with DuoNeb, on room air today Bilateral pleural effusion, small, Lasix IV p.r.n. Hyponatremia on IV fluids Hypokalemia, we will replace electrolytes Chronic constipation in exacerbation, laxatives on board -CTA negative PE, pBNP wnl, TTE LVEF 55-60%, no significant VHD, trace circumferential pericardial effusion without evidence of hemodynamic compromise -04/25: desatted to 86% with ambulation, steroid dose adjusted, decreased dose today, start scheduled bronchodilator, supplemental oxygen, empirical abx -04/26-05/01: abx course finished, pending placement We will repeat chest x-ray now Schizophrenia Anxiety disorder -continue home olanzapine Code status: Full Code DVT/VTE Prophylaxis: heparin Patient was evaluated by RN for needs of home oxygen, patient qualified for home oxygen Awaiting placement to rehab facility Sepsis Screening Reassessment Date: May 08, 2025 Date of Service: May 08, 2025 Billing Provider: ALAINA TIAN MD Common Visit Codes: [id number] INP/OBS CARE(HIGH) ALAINA TIAN MD May 08, 2025 18:41
[2025-05-08] MEDS: ipratropium/albuterol 3ml nebule NEB SCH (19:58)
[2025-05-08] MEDS: polyethylene glycol 3350 17gm powd pack PO SCH (20:40)
[2025-05-09] VITALS (14 sets, daily range): BP systolic 131–157; BP diastolic 55–89; PULSE 72–97; RESP 12–18; TEMP 97–98.5; O2SAT 91–96
[2025-05-09 07:11] LABS: MEAN PLATELET VOLUME 8.7 FL (7.4-10.4); RED CELL DISTRIBUTION WIDTH 16.2 % (11.5-14.5)
[2025-05-09] MEDS: ondansetron/PF 4mg/2ml inj IV PRN (08:15)
[2025-05-09 09:56] LABS: CREATININE 0.86 MG/DL (0.40-0.90); TOTAL CARBON DIOXIDE 28.4 MMOL/L (24-32); eCRCL 74 ML/MIN; eGFR 71 ML/MIN
[2025-05-09] MEDS ORDERED: normal saline 1000ml 1,000 ML IV SCH (11:10)
[2025-05-09] MEDS: normal saline 1000ml 1,000 ML IV SCH (11:43)
--- NOTE | 2025-05-09 12:42 | PROGRESS NOTE ---
Daily Progress Note Providers to CC ~ Antibiotic Timeout Antibiotic Ordered?: No Subjective No acute events overnight. Patient examined at bedside. No new complaints. Patient denies chest pain, sob, palpitations, abdominal pain, n/v/d. Vss, labs unremarkable. Pending placement. Objective Vital Signs Date Time Temp Pulse Resp B/P (MAP) Pulse Ox O2 Delivery O2 Flow Rate FiO2 05/09/25 11:24 83 16 Room Air 0.0 05/09/25 11:17 92 28 05/09/25 01:10 97.7 145/83 (103) Result Diagram: 05/09/25 0647 05/09/25 0647 Physical Exam General: A&Ox 3, NAD HEENT: Normocephalic, PERRLA Neck: Supple, trachea midline, no JVD Chest: Clear to auscultation bilaterally Cardiovascular: RRR, S1&S2 GI: Soft and nontender Extremities: No cyanosis/clubbing/or edema TANKROOM TENDER: CN II-XII intact, no focal deficits Musculoskeletal: No paraspinal muscle tenderness, no muscle spasm Skin: Warm and intact Coagulation Studies Laboratory Tests Test 04/24/25 06:05 D-Dimer 0.71 MG/L FEU (0-0.50) H D-Dimer Comment Problem\Assessment\Plan Patient is 44-year-old female who [facility] in [place]. Patient is conserved in her conservator number is in her name is Leti she has [facility]. Patient was brought from nursing home because of low oxygen saturation ( between 84-90 percent ). Patient is admitted for shortness of breaths in possible asthma exacerbation. Patient is 44-year-old female who [facility] [place]. Patient is conserved in her conservator number is in her name is Leti she has [facility]. Patient was brought from nursing home because of low oxygen saturation ( between 84-90 percent ). Patient is admitted for shortness of breaths in possible asthma exacerbation. Assessment & Plan Acute COPD/asthma exacerbation Tobacco abuse -CTA negative PE, pBNP wnl, TTE LVEF 55-60%, no significant VHD, trace circumferential pericardial effusion without evidence of hemodynamic compromise -04/25: desatted to 86% with ambulation, steroid dose adjusted, start scheduled bronchodilator, supplemental oxygen, empirical abx -04/26-05/09: abx course finished, pending placement Schizophrenia Anxiety disorder -continue home olanzapine Code status: Full Code DVT/VTE Prophylaxis: heparin Date of Service: May 09, 2025 Billing Provider: BRIAN NOGUERA Common Visit Codes: [id number] INP/OBS CARE(MOD) BRIAN NOGUERA May 09, 2025 12:42
[2025-05-09] MEDS: SODIUM ZIRCONIUM CYCLOSILICATE 10 GM POWD.PACK PO ONE (14:17)
[2025-05-10] VITALS (9 sets, daily range): BP systolic 118–139; BP diastolic 58–72; PULSE 66–96; RESP 16; TEMP 96.9–98.5; O2SAT 91–96
[2025-05-10 05:06] LABS: MEAN PLATELET VOLUME 7.6 FL (7.4-10.4); RED CELL DISTRIBUTION WIDTH 16.5 % (11.5-14.5)
[2025-05-10 05:18] LABS: CREATININE 0.76 MG/DL (0.40-0.90); TOTAL CARBON DIOXIDE 31.4 MMOL/L (24-32); eCRCL 84 ML/MIN; eGFR 82 ML/MIN
--- NOTE | 2025-05-10 11:19 | PROGRESS NOTE ---
Daily Progress Note Providers to CC ~ Antibiotic Timeout Antibiotic Ordered?: No Subjective No acute events overnight. Patient examined at bedside. No new complaints. Patient denies chest pain, sob, palpitations, abdominal pain, n/v/d. Vss, labs unremarkable. Pending placement. Objective Vital Signs Date Time Temp Pulse Resp B/P (MAP) Pulse Ox O2 Delivery O2 Flow Rate FiO2 05/10/25 10:56 85 16 92 Nasal Cannula* 2 28 05/09/25 22:00 97.0 146/65 (92) Result Diagram: 05/10/25 0443 05/10/25 0443 Physical Exam General: A&Ox 3, NAD HEENT: Normocephalic, PERRLA Neck: Supple, trachea midline, no JVD Chest: Clear to auscultation bilaterally Cardiovascular: RRR, S1&S2 GI: Soft and nontender Extremities: No cyanosis/clubbing/or edema IT COMMUNICATIONS MANAGER: CN II-XII intact, no focal deficits Musculoskeletal: No paraspinal muscle tenderness, no muscle spasm Skin: Warm and intact Coagulation Studies Laboratory Tests Test 04/24/25 06:05 D-Dimer 0.71 MG/L FEU (0-0.50) H D-Dimer Comment Problem\Assessment\Plan Patient is 44-year-old female who [facility] [place]. Patient is conserved in her conservator number is in her name is Leti she has [facility]. Patient was brought from alf because of low oxygen saturation ( between 84-90 percent ). Patient is admitted for shortness of breaths in possible asthma exacerbation. Patient is 44-year-old female who [facility] [place]. Patient is conserved in her conservator number is in her name is Leti mary has [facility]. Patient was brought from alf because of low oxygen saturation ( between 84-90 percent ). Patient is admitted for shortness of breaths in possible asthma exacerbation. Assessment & Plan Acute COPD/asthma exacerbation Tobacco abuse -CTA negative PE, pBNP wnl, TTE LVEF 55-60%, no significant VHD, trace circumferential pericardial effusion without evidence of hemodynamic compromise -04/25: desatted to 86% with ambulation, steroid dose adjusted, start scheduled bronchodilator, supplemental oxygen, empirical abx -04/26-05/09: abx course finished, pending placement Schizophrenia Anxiety disorder -continue home olanzapine Code status: Full Code DVT/VTE Prophylaxis: heparin Date of Service: May 10, 2025 Billing Provider: BRIAN NOGUERA Common Visit Codes: [id number] INP/OBS CARE(MOD) BRIAN NOGUERA May 10, 2025 11:19
[2025-05-11] VITALS (12 sets, daily range): BP systolic 130–146; BP diastolic 55–81; PULSE 65–90; RESP 14–18; TEMP 97.5–98.3; O2SAT 92–96
[2025-05-11 04:58] LABS: MEAN PLATELET VOLUME 7.4 FL (7.4-10.4); RED CELL DISTRIBUTION WIDTH 16.5 % (11.5-14.5)
[2025-05-11 05:19] LABS: CREATININE 0.71 MG/DL (0.40-0.90); TOTAL CARBON DIOXIDE 26.9 MMOL/L (24-32); eCRCL 90 ML/MIN; eGFR 89 ML/MIN
--- NOTE | 2025-05-11 11:07 | VASCULAR REPORT ---
VASC VL VENOUS HISTORY: dvt COMPARISON: None TECHNIQUE: Duplex doppler evaluation of the deep venous system of the lower extremity from the common femoral veins, superficial femoral vein, great saphenous vein, deep femoral vein, popliteal vein, an d calf veins, including color doppler and spectral/pulsed waveform analysis, was performed. FINDINGS: Right: - Common femoral vein: Compressible - Deep femoral vein: Compressible - Femoral vein: Compressible - Popliteal vein: Compressible - Posterior tibial vein: Waveforms present - Peroneal vein: Waveforms present - Other: Nothing Left: - Common femoral vein: Compressible - Deep femoral vein: Compressible - Femoral vein: Compressible - Popliteal vein: Compressible - Posterior tibial vein: Waveforms present - Peroneal vein: Waveforms present - Other: Nothing IMPRESSION: No right or left lower extremity deep venous thrombosis.
--- NOTE | 2025-05-11 12:18 | PROGRESS NOTE ---
Daily Progress Note Providers to CC ~ Antibiotic Timeout Antibiotic Ordered?: No Subjective No acute events overnight. Patient examined at bedside. No new complaints. Patient denies chest pain, sob, palpitations, abdominal pain, n/v/d. Vss, labs unremarkable. Pending placement. Objective Vital Signs Date Time Temp Pulse Resp B/P (MAP) Pulse Ox O2 Delivery O2 Flow Rate FiO2 05/11/25 11:36 86 16 Nasal Cannula 2.0 05/11/25 11:36 96 28 05/11/25 10:26 98.2 145/81 (102) Result Diagram: 05/11/258 05/11/25447 Physical Exam General: A&Ox 3, NAD HEENT: Normocephalic, PERRLA Neck: Supple, trachea midline, no JVD Chest: Clear to auscultation bilaterally Cardiovascular: RRR, S1&S2 GI: Soft and nontender Extremities: No cyanosis/clubbing/or edema ACADEMIC COORDINATOR: CN II-XII intact, no focal deficits Musculoskeletal: No paraspinal muscle tenderness, no muscle spasm Skin: Warm and intact Coagulation Studies Laboratory Tests Test 04/24/25 06:05 D-Dimer 0.71 MG/L FEU (0-0.50) H D-Dimer Comment Problem\Assessment\Plan Patient is 44-year-old female who [facility] in [place]. Patient is conserved in her conservator number is in her name is Leti she has [facility]. [facility] from [facility] because of low oxygen saturation ( between 84-90 percent ). Patient is admitted for shortness of breaths in possible asthma exacerbation. Patient is 44-year-old female who [facility] [place]. Patient is conserved in her conservator number is in her name is Leti she has [facility]. Patient was brought from [facility] because of low oxygen saturation ( between 84-90 percent ). Patient is admitted for shortness of breaths in possible asthma exacerbation. Assessment & Plan Acute COPD/asthma exacerbation Tobacco abuse -CTA negative PE, pBNP wnl, TTE LVEF 55-60%, no significant VHD, trace circumferential pericardial effusion without evidence of hemodynamic compromise -04/25: desatted to 86% with ambulation, steroid dose adjusted, start scheduled bronchodilator, supplemental oxygen, empirical abx -04/26-05/11: abx course finished, pending placement Schizophrenia Anxiety disorder -continue home olanzapine Code status: Full Code DVT/VTE Prophylaxis: heparin Date of Service: May 11, 2025 Billing Provider: BRIAN NOGUERA Common Visit Codes: [id number] INP/OBS CARE(MOD) BRIAN NOGUERA May 11, 2025 12:18
[2025-05-12] VITALS (13 sets, daily range): BP systolic 122–156; BP diastolic 68–83; PULSE 71–87; RESP 16–18; TEMP 97.3–98.6; O2SAT 93–98
[2025-05-12 05:22] LABS: CREATININE 0.72 MG/DL (0.40-0.90); TOTAL CARBON DIOXIDE 28.5 MMOL/L (24-32); eCRCL 89 ML/MIN; eGFR 88 ML/MIN
[2025-05-12 05:24] LABS: MEAN PLATELET VOLUME 8.0 FL (7.4-10.4); RED CELL DISTRIBUTION WIDTH 16.5 % (11.5-14.5)
[2025-05-12] MEDS: ipratropium/albuterol 3ml nebule NEB SCH (07:54)
--- NOTE | 2025-05-12 13:25 | PROGRESS NOTE ---
Daily Progress Note Providers to CC ~ Antibiotic Timeout Antibiotic Ordered?: No Subjective No acute events overnight. Patient examined at bedside. No new complaints. Patient denies chest pain, sob, palpitations, abdominal pain, n/v/d. Vss, labs unremarkable. Pending placement. Objective Vital Signs Date Time Temp Pulse Resp B/P (MAP) Pulse Ox O2 Delivery O2 Flow Rate FiO2 05/12/25 11:28 72 17 Nasal Cannula 2.0 05/12/25 11:23 98 28 05/11/25 22:00 98.3 144/55 (84) Result Diagram: 05/12/2543405/12/25434 Physical Exam General: A&Ox 3, NAD HEENT: Normocephalic, PERRLA Neck: Supple, trachea midline, no JVD Chest: Clear to auscultation bilaterally Cardiovascular: RRR, S1&S2 GI: Soft and nontender Extremities: No cyanosis/clubbing/or edema RN IMCU: CN II-XII intact, no focal deficits Musculoskeletal: No paraspinal muscle tenderness, no muscle spasm Skin: Warm and intact Coagulation Studies Laboratory Tests Test 04/24/25 06:05 D-Dimer 0.71 MG/L FEU (0-0.50) H D-Dimer Comment Problem\Assessment\Plan Patient is 44-year-old female who currently [facility] in [place]. Patient is conserved in her conservator number is in her name is Leti she has [facility]. Patient was brought from long term because of low oxygen saturation ( between 84-90 percent ). Patient is admitted for shortness of breaths in possible asthma exacerbation. Patient is 44-year-old female who [facility] [place]. Patient is conserved in her conservator number is in her name is Leti she has [facility]. Patient was brought from long term because of low oxygen saturation ( between 84-90 percent ). Patient is admitted for shortness of breaths in possible asthma exacerbation. Assessment & Plan Acute COPD/asthma exacerbation Tobacco abuse -CTA negative PE, pBNP wnl, TTE LVEF 55-60%, no significant VHD, trace circumferential pericardial effusion without evidence of hemodynamic compromise -04/25: desatted to 86% with ambulation, steroid dose adjusted, start scheduled bronchodilator, supplemental oxygen, empirical abx -05/11: abx course finished, pending placement Schizophrenia Anxiety disorder -continue home olanzapine Code status: Full Code DVT/VTE Prophylaxis: heparin Date of Service: May 12, 2025 Billing Provider: BRIAN ONGUERA Common Visit Codes: [id number] INP/OBS CARE(MOD) BRIAN NOGUERA May 12, 2025 13:25
[2025-05-13] VITALS (15 sets, daily range): BP systolic 112–157; BP diastolic 42–76; PULSE 65–95; RESP 14–20; TEMP 97.6–98.8; O2SAT 94–97
[2025-05-13 05:39] LABS: MEAN PLATELET VOLUME 8.0 FL (7.4-10.4); RED CELL DISTRIBUTION WIDTH 16.7 % (11.5-14.5)
[2025-05-13 06:13] LABS: CREATININE 0.70 MG/DL (0.40-0.90); TOTAL CARBON DIOXIDE 25.0 MMOL/L (24-32); eCRCL 91 ML/MIN; eGFR 90 ML/MIN
[2025-05-13 06:36] LABS: BANDS% (MANUAL) 1.0 % (0-10); LYMPHOCYTES % (MANUAL) 8.0 % (21-51); METAMYLEOCYTES% (MANUAL) 1.0 % (0-0); MONOCYTES % (MANUAL) 3.0 % (2-12); NEUTROPHILS % (MANUAL) 87.0 % (42-75); PLATELET ESTIMATE DECREASED
--- NOTE | 2025-05-13 10:13 | PROGRESS NOTE ---
Daily Progress Note Providers to CC ~ Antibiotic Timeout Antibiotic Ordered?: No Subjective No acute events overnight. Patient examined at bedside. No new complaints. Patient denies chest pain, sob, palpitations, abdominal pain, n/v/d. Vss, labs unremarkable. Pending placement. Objective Vital Signs Date Time Temp Pulse Resp B/P (MAP) Pulse Ox O2 Delivery O2 Flow Rate FiO2 05/13/25 08:50 65 05/13/25 08:00 16 Nasal Cannula 2.0 05/13/25 07:26 97 32 05/13/25 06:40 97.6 114/63 (80) Result Diagram: 05/13/2543605/13/25436 Physical Exam General: A&Ox 3, NAD HEENT: Normocephalic, PERRLA Neck: Supple, trachea midline, no JVD Chest: Clear to auscultation bilaterally Cardiovascular: RRR, S1&S2 GI: Soft and nontender Extremities: No cyanosis/clubbing/or edema MANAGEMENT SERVICES TECHNICIAN: CN II-XII intact, no focal deficits Musculoskeletal: No paraspinal muscle tenderness, no muscle spasm Skin: Warm and intact Coagulation Studies Laboratory Tests Test 04/24/25 06:05 D-Dimer 0.71 MG/L FEU (0-0.50) H D-Dimer Comment Problem\Assessment\Plan Patient is 44-year-old female who [facility] [place]. Patient is conserved in her conservator number is in her name is Leti mary has [facility]. Patient was brought from group home because of low oxygen saturation ( between 84-90 percent ). Patient is admitted for shortness of breaths in possible asthma exacerbation. Patient is 44-year-old female who [facility] [place]. Patient is conserved in her conservator number is in her name is [place] mary has [facility]. Patient was brought from group home because of low oxygen saturation ( between 84-90 percent ). Patient is admitted for shortness of breaths in possible asthma exacerbation. Assessment & Plan Acute COPD/asthma exacerbation Tobacco abuse -CTA negative PE, pBNP wnl, TTE LVEF 55-60%, no significant VHD, trace circumferential pericardial effusion without evidence of hemodynamic compromise -04/25: desatted to 86% with ambulation, steroid dose adjusted, start scheduled bronchodilator, supplemental oxygen, empirical abx -05/11: abx course finished, pending placement Schizophrenia Anxiety disorder -continue home olanzapine Code status: Full Code DVT/VTE Prophylaxis: heparin Date of Service: May 13, 2025 Billing Provider: BRIAN NOGUERA Common Visit Codes: [id number] INP/OBS CARE(MOD) BRIAN NOGUERA May 13, 2025 10:13
[2025-05-14] VITALS (10 sets, daily range): BP systolic 116–152; BP diastolic 55–78; PULSE 67–96; RESP 15–20; TEMP 97–97.8; O2SAT 92–97
[2025-05-14 05:31] LABS: MEAN PLATELET VOLUME 8.0 FL (7.4-10.4); RED CELL DISTRIBUTION WIDTH 16.9 % (11.5-14.5)
[2025-05-14 05:50] LABS: CREATININE 0.60 MG/DL (0.40-0.90); TOTAL CARBON DIOXIDE 27.0 MMOL/L (24-32); eCRCL 107 ML/MIN; eGFR > 90 ML/MIN
--- NOTE | 2025-05-14 09:20 | PROGRESS NOTE ---
Daily Progress Note Providers to CC ~ Antibiotic Timeout Antibiotic Ordered?: No Subjective No acute events overnight. Patient examined at bedside. No new complaints. Patient denies chest pain, sob, palpitations, abdominal pain, n/v/d. Vss, labs unremarkable. Pending placement. Objective Vital Signs Date Time Temp Pulse Resp B/P (MAP) Pulse Ox O2 Delivery O2 Flow Rate FiO2 05/14/25 08:12 67 05/14/25 07:40 17 Nasal Cannula 1.0 05/14/25 07:32 97 24 05/13/25 22:00 97.7 128/42 (70) Result Diagram: 05/14/25 0445 05/14/25 0445 Physical Exam General: A&Ox 3, NAD HEENT: Normocephalic, PERRLA Neck: Supple, trachea midline, no JVD Chest: Clear to auscultation bilaterally Cardiovascular: RRR, S1&S2 GI: Soft and nontender Extremities: No cyanosis/clubbing/or edema RIVET MAKER: CN II-XII intact, no focal deficits Musculoskeletal: No paraspinal muscle tenderness, no muscle spasm Skin: Warm and intact Coagulation Studies Laboratory Tests Test 04/24/25 06:05 D-Dimer 0.71 MG/L FEU (0-0.50) H D-Dimer Comment Problem\Assessment\Plan Patient is 44-year-old female who [facility] [place]. Patient is conserved in her conservator number is in her name is Leti mary has [facility]. Patient was brought from half-way because of low oxygen saturation ( between 84-90 percent ). Patient is admitted for shortness of breaths in possible asthma exacerbation. Patient is 44-year-old female who [facility] [place]. Patient is conserved in her conservator number is in her name is [place] mary has [facility]. Patient was brought from half-way because of low oxygen saturation ( between 84-90 percent ). Patient is admitted for shortness of breaths in possible asthma exacerbation. Assessment & Plan Acute COPD/asthma exacerbation Tobacco abuse -CTA negative PE, pBNP wnl, TTE LVEF 55-60%, no significant VHD, trace circumferential pericardial effusion without evidence of hemodynamic compromise -04/25: desatted to 86% with ambulation, steroid dose adjusted, start scheduled bronchodilator, supplemental oxygen, empirical abx -05/11: abx course finished, pending placement Schizophrenia Anxiety disorder -continue home olanzapine Code status: Full Code DVT/VTE Prophylaxis: heparin Date of Service: May 14, 2025 Billing Provider: BRIAN NOGUERA Common Visit Codes: [id number] INP/OBS CARE(MOD) BRIAN NOGUERA May 14, 2025 09:20
[2025-05-15] VITALS (12 sets, daily range): BP systolic 117–129; BP diastolic 65–77; PULSE 64–93; RESP 16–18; TEMP 97.3–97.8; O2SAT 92–98
[2025-05-15 06:01] LABS: MEAN PLATELET VOLUME 7.9 FL (7.4-10.4); RED CELL DISTRIBUTION WIDTH 17.3 % (11.5-14.5)
[2025-05-15 06:29] LABS: CREATININE 0.51 MG/DL (0.40-0.90); TOTAL CARBON DIOXIDE 24.5 MMOL/L (24-32); eCRCL 125 ML/MIN; eGFR > 90 ML/MIN
--- NOTE | 2025-05-15 11:22 | PROGRESS NOTE ---
Daily Progress Note Providers to CC ~ Antibiotic Timeout Antibiotic Ordered?: No Subjective No acute events overnight. Patient examined at bedside. No new complaints. Patient denies chest pain, sob, palpitations, abdominal pain, n/v/d. Vss, labs unremarkable. O2 challenge with 93% with ambulation without supplemental oxygen. Pending placement. Objective Vital Signs Date Time Temp Pulse Resp B/P (MAP) Pulse Ox O2 Delivery O2 Flow Rate FiO2 05/15/25 10:56 88 18 Room Air 0.0 05/15/25 10:51 94 21 05/15/25 06:41 97.3 129/77 (94) Result Diagram: 05/15/25 0455 05/15/25 0455 Physical Exam General: A&Ox 3, NAD HEENT: Normocephalic, PERRLA Neck: Supple, trachea midline, no JVD Chest: Clear to auscultation bilaterally Cardiovascular: RRR, S1&S2 GI: Soft and nontender Extremities: No cyanosis/clubbing/or edema ROUND UP RING HAND: CN II-XII intact, no focal deficits Musculoskeletal: No paraspinal muscle tenderness, no muscle spasm Skin: Warm and intact Coagulation Studies Laboratory Tests Test 04/24/25 06:05 D-Dimer 0.71 MG/L FEU (0-0.50) H D-Dimer Comment Problem\Assessment\Plan Patient is 44-year-old female who [facility] [place]. Patient is conserved in her conservator number is in her name is [place] mary has [facility]. [facility] because of low oxygen saturation ( between 84-90 percent ). Patient is admitted for shortness of breaths in possible asthma exacerbation. Patient is 44-year-old female who [facility] [place]. Patient is conserved in her conservator number is in her name is [place] she has [facility]. Patient was brought from [facility] because of low oxygen saturation ( between 84-90 percent ). Patient is admitted for shortness of breaths in possible asthma exacerbation. Assessment & Plan Acute COPD/asthma exacerbation Tobacco abuse -CTA negative PE, pBNP wnl, TTE LVEF 55-60%, no significant VHD, trace circumferential pericardial effusion without evidence of hemodynamic compromise -04/25: desatted to 86% with ambulation, steroid dose adjusted, start scheduled bronchodilator, supplemental oxygen, empirical abx -05/11: abx course finished, pending placement -05/15: O2 challenge with 93% with ambulation without supplemental oxygen, pending placement Schizophrenia Anxiety disorder -continue home olanzapine Code status: Full Code DVT/VTE Prophylaxis: heparin Date of Service: May 15, 2025 Billing Provider: BRIAN NOGUERA Common Visit Codes: [id number] INP/OBS CARE(MOD) BRIAN NOGUERA May 15, 2025 11:22
--- NOTE | 2025-05-15 15:30 | RADIOLOGY REPORT ---
EXAM: DI CHEST,SINGLE VIEW Indication: Pain Technique: Single frontal view of the chest was obtained Comparison: DI CHEST,SINGLE VIEW on DOS: 05/06/25, DI CHEST,SINGLE VIEW on DOS: 05/02/25, CT CTA CHEST P E W/ IV CONTRAST on DOS: 04/24/25, DI CHEST,TWO VIEWS on DOS: 04/23/25 FINDINGS: Lines and Tubes: None Lungs: No focal consolidation. Pleura: No effusion. No pneumothorax. Cardiomediastinal contours: Unremarkable Bones: No acute osseous abnormality. IMPRESSION: No acute cardiopulmonary disease.
[2025-05-16] VITALS (15 sets, daily range): BP systolic 102–150; BP diastolic 47–66; PULSE 64–82; RESP 15–19; TEMP 97.6–98; O2SAT 93–95
[2025-05-16 04:34] LABS: MEAN PLATELET VOLUME 7.4 FL (7.4-10.4); RED CELL DISTRIBUTION WIDTH 17.6 % (11.5-14.5)
[2025-05-16 04:52] LABS: CREATININE 0.79 MG/DL (0.40-0.90); TOTAL CARBON DIOXIDE 27.9 MMOL/L (24-32); eCRCL 81 ML/MIN; eGFR 79 ML/MIN
--- NOTE | 2025-05-16 19:54 | PROGRESS NOTE ---
Daily Progress Note Providers to CC ~ Antibiotic Timeout Antibiotic Ordered?: No Subjective Patient is waiting to get placement or rehab . Looked comfortable denied any concerns Objective Vital Signs Date Time Temp Pulse Resp B/P (MAP) Pulse Ox O2 Delivery O2 Flow Rate FiO2 05/16/25 19:42 76 18 Room Air 0.0 05/16/25 19:37 94 21 05/16/25 10:00 97.9 102/50 (67) Result Diagram: 05/16/2541605/16/25416 General-patient not in any acute distress, alert awake oriented, chronically ill-appearing HEENT-atraumatic normocephalic, neck supple without elevated JVD, no thyromegaly or carotid bruit. No lymphadenopathy bilaterally. Eyes-no icterus or pallor seen in eyes Chest-decreased breath sounds to auscultation bilaterally, breathing nonlabored no tachypnea, wheezing and rales noticed , no crackles. Heart-S1-S2 normal, regular heart rate no murmur Abdomen bowel sounds positive on auscultation, soft nondistended nontender no guarding, no rigidity Skin no active skin rash Neurology-grossly intact, nonfocal alert awake oriented Extremity- no pedal edema able to move all 4 extremities Psychiatry - patient is not confused or agitated cooperated during physical examination Coagulation Studies Laboratory Tests Test 04/24/25 06:05 D-Dimer 0.71 MG/L FEU (0-0.50) H D-Dimer Comment Problem\Assessment\Plan Patient is 44-year-old female who currently lives in [facility] in [place]. Patient is conserved in her conservator number is in her name is Leti she has [facility]. Patient was brought from senior care because of low oxygen saturation ( between 84-90 percent ). Patient is admitted for shortness of breaths in possible asthma exacerbation. Patient is 44-year-old female who currently lives in [facility] unit in [place]. Patient is conserved in her conservator number is in her name is Ltei she has [facility]. Patient was brought from senior care because of low oxygen saturation ( between 84-90 percent ). Patient is admitted for shortness of breaths in possible asthma exacerbation. Assessment & Plan Acute COPD/asthma exacerbation Tobacco abuse -CTA negative PE, pBNP wnl, TTE LVEF 55-60%, no significant VHD, trace circumferential pericardial effusion without evidence of hemodynamic compromise -04/25: desatted to 86% with ambulation, steroid dose adjusted, start scheduled bronchodilator, supplemental oxygen, empirical abx -05/11: abx course finished, pending placement -05/15: O2 challenge with 93% with ambulation without supplemental oxygen, pending placement Schizophrenia Anxiety disorder -continue home olanzapine Code status: Full Code DVT/VTE Prophylaxis: heparin Patient is waiting for rehab placement. editorial project manager working on discharge plan Date of Service: May 16, 2025 Billing Provider: EVERETT DIAS MD Common Visit Codes: [id number] INP/OBS CARE(HIGH) EVERETT DIAS MD May 16, 2025 19:54
[2025-05-17] VITALS (12 sets, daily range): BP systolic 100–125; BP diastolic 43–66; PULSE 69–88; RESP 15–22; TEMP 97.5–97.9; O2SAT 91–96
[2025-05-17 04:54] LABS: MEAN PLATELET VOLUME 7.3 FL (7.4-10.4); RED CELL DISTRIBUTION WIDTH 17.9 % (11.5-14.5)
[2025-05-17 05:19] LABS: CREATININE 0.64 MG/DL (0.40-0.90); TOTAL CARBON DIOXIDE 28.0 MMOL/L (24-32); eCRCL 100 ML/MIN; eGFR > 90 ML/MIN
[2025-05-17] MEDS: methylPREDNISolone sod succ/PF 40mg inj. IV SCH (08:10)
--- NOTE | 2025-05-17 19:47 | PROGRESS NOTE ---
Daily Progress Note Providers to CC ~ Antibiotic Timeout Antibiotic Ordered?: No Subjective Patient is accepted in rehab facility for tomorrow as per mattress spring encaser Alyssa. Patient was seen in her room no new concerns looks comfortable Objective Vital Signs Date Time Temp Pulse Resp B/P (MAP) Pulse Ox O2 Delivery O2 Flow Rate FiO2 05/17/25 19:28 80 18 Room Air 0.0 05/17/25 19:20 92 21 05/17/25 10:00 97.9 124/46 (72) Result Diagram: 05/17/25 0433 05/17/25 0433 General-patient not in any acute distress, alert awake oriented, chronically ill-appearing HEENT-atraumatic normocephalic, neck supple without elevated JVD, no thyromegaly or carotid bruit. No lymphadenopathy bilaterally. Eyes-no icterus or pallor seen in eyes Chest-decreased breath sounds to auscultation bilaterally, breathing nonlabored no tachypnea, wheezing and rales noticed , no crackles. Heart-S1-S2 normal, regular heart rate no murmur Abdomen bowel sounds positive on auscultation, soft nondistended nontender no guarding, no rigidity Skin no active skin rash Neurology-grossly intact, nonfocal alert awake oriented Extremity- no pedal edema able to move all 4 extremities Psychiatry - patient is not confused or agitated cooperated during physical examination Coagulation Studies Laboratory Tests Test 04/24/25 06:05 D-Dimer 0.71 MG/L FEU (0-0.50) H D-Dimer Comment Problem\Assessment\Plan Patient is 44-year-old female who currently lives [facility] in [place]. Patient is conserved in her conservator number is in her name is Letijessica hernandez has [facility]. [facility] from [facility] because of low oxygen saturation ( between 84-90 percent ). Patient is admitted for shortness of breaths in possible asthma exacerbation. Patient is 44-year-old female who currently lives [facility] in [place]. Patient is conserved in her conservator number is in her name is Leti hernandez has [facility]. [facility] was [facility] from [facility] because of low oxygen saturation ( between 84-90 percent ). Patient is admitted for shortness of breaths in possible asthma exacerbation. Assessment & Plan Acute COPD/asthma exacerbation Tobacco abuse -CTA negative PE, pBNP wnl, TTE LVEF 55-60%, no significant VHD, trace circumferential pericardial effusion without evidence of hemodynamic compromise -04/25: desatted to 86% with ambulation, steroid dose adjusted, start scheduled bronchodilator, supplemental oxygen, empirical abx -05/11: abx course finished, pending placement -05/15: O2 challenge with 93% with ambulation without supplemental oxygen, pending placement Schizophrenia Anxiety disorder -continue home olanzapine Code status: Full Code DVT/VTE Prophylaxis: heparin Patient is accepted in rehab facility for tomorrow as per mattress spring encaser Alyssa. Patient will be discharged today to rehab Date of Service: May 17, 2025 Billing Provider: EVERETT DIAS MD Common Visit Codes: [id number] INP/OBS CARE(HIGH) EVERETT DIAS MD May 17, 2025 19:47
[2025-05-17] MEDS ORDERED: NOR5T PO (19:55)
[2025-05-17] MEDS ORDERED: HYDR-3686 PO (19:55)
[2025-05-17] MEDS ORDERED: HALO10TA13 PO (19:55)
--- NOTE | 2025-05-17 19:59 | DISCHARGE SUMMARY ---
Discharge Summary Providers to CC ~ Discharge Summary Admission Diagnosis: Possible asthma exacerbation , SOB Hospital Course DATE OF ADMISSION: April 23, 2025 DATE OF DISCHARGE: May 17, 2025 CBC, CMP, procalcitonin, blood cultures unremarkable. Blood culture showed no growth after five days. During hospitalization patient had x-ray chest vascular ultrasound, chest/thorax CTA, echo done. Please see the actual results in EHR. CTA CHEST PE- IMPRESSION: 1. Limited by motion. No large central pulmonary embolism. 2. Small bilateral pleural effusions with associated bibasilar atelectasis and consolidation. Mediastinal and hilar lymphadenopathy. Trace pericardial effusion. Clinical correlation and continued follow-up is recommended. ECHOCARDIOGRAMConclusion Small LV size and normal wall thickness. Overall systolic function is normal. Grade 1 diastolic dysfunction, impaired relaxation (low to normal filling pressures). LVEF is 55-60%. RV is normal size and function. LA size is normal. RA size is normal. Trileaflet AV appears mildly sclerotic without stenosis or insufficiency. Mild MV annular calcification without stenosis. Trace regurgitation. TV appears structurally normal with trace regurgitation. Trace circumferential pericardial effusion without evidence of hemodynamic compromise. Prominent anterior epicardial fat pad is present. VL VENOUS- IMPRESSION: No right or left lower extremity deep venous thrombosis. CHEST,SINGLE VIEW-IMPRESSION: No acute cardiopulmonary disease. Discharge Diagnosis\Comment: Acute COPD/asthma exacerbation Tobacco abuse Schizophrenia Anxiety disorder Operations\Procedures: None Consultants: None Complications: None Condition on DC: Stable New Medications: Amlodipine Besylate (Amlodipine Besylate) 5 Mg Tablet 10 MG PO DAILY for 30 Days, #30 TAB Changed Medications: Haloperidol (Haloperidol) 10 Mg Tablet 0.5 TAB PO Q12H for 30 Days, #30 TAB 0 Refills (Changed from: 1 TAB; 60) Hydroxyzine Hcl* (Atarax*) 25 Mg Tablet 1 TAB PO DAILY for anxiety for 30 Days, #60 TAB (Changed from: 2 TAB) Continued Medications: Acetaminophen (Tylenol) 325 Mg Tablet 1-2 TAB PO QID PRN PRN for pain or fever for 7 Days, #60 TAB Diclofenac Sodium (Voltaren Arthritis Pain) 1 % Gel..gram. 4 GM TP Q6H for left knee pain Fluoxetine Hcl* (Prozac*) 20 Mg Capsule 1 CAP PO QAM Olanzapine (Olanzapine) 10 Mg Tablet 1.5 TAB PO HS for 30 Days, #30 TAB 0 Refills Paliperidone Palmitate (Invega Sustenna) 156 Mg/Ml Syringe 1 SYR IM Q30D for 30 Days, #1 ML 0 Refills Discharge Summary: Patient is 44-year-old female who currently lives in [facility] in [place]. Patient is conserved in her conservator number is in her name is Leti she has [facility]. [facility] because of low oxygen saturation ( between 84-90 percent ). Patient is admitted for shortness of breaths in possible asthma exacerbation. During hospitalization patient was treated for Acute COPD/asthma exacerbation Tobacco abuse -CTA negative PE, pBNP wnl, TTE LVEF 55-60%, no significant VHD, trace circumferential pericardial effusion without evidence of hemodynamic compromise -04/25: desatted to 86% with ambulation, steroid dose adjusted, start scheduled bronchodilator, supplemental oxygen, empirical abx -05/11: abx course finished, pending placement -05/15: O2 challenge with 93% with ambulation without supplemental oxygen, pending placement 05/17- Patient is accepted in rehab facility for tomorrow as per watch case polisher Alyssa. Patient will be discharged tomorrow to rehab Schizophrenia Anxiety disorder -continue home olanzapine Code status: Full Code DVT/VTE Prophylaxis: heparin Patient's clinical condition improved and she was feeling much better. She has been afebrile getting discharged to rehab in stable condition. Patient is seen and examined on the day of discharge discharge instructions provided to the patient. All labs diagnostic workup and discharge plan discussed with patient in detail in visit before discharge all questions and concerns answered to the best of my professional medical knowledge. General-patient not in any acute distress, alert awake oriented, chronically ill-appearing HEENT-atraumatic normocephalic, neck supple without elevated JVD, no thyromegaly or carotid bruit. No lymphadenopathy bilaterally. Eyes-no icterus or pallor seen in eyes Chest-decreased breath sounds to auscultation bilaterally, breathing nonlabored no tachypnea, wheezing and rales noticed , no crackles. Heart-S1-S2 normal, regular heart rate no murmur Abdomen bowel sounds positive on auscultation, soft nondistended nontender no guarding, no rigidity Skin no active skin rash Neurology-grossly intact, nonfocal alert awake oriented Extremity- no pedal edema able to move all 4 extremities Psychiatry - patient is not confused or agitated cooperated during physical examination *Problems/Diagnosis: (1) Asthma Status: Acute Total Time Spent on D/C: > 30 Minutes Date of Service: May 19, 2025 Billing Provider: EVERETT DIAS MD Common Visit Codes: 20028-CEP/OBS DISCH DAY >30min Problem Qualifiers (1) Asthma: Qualified Codes: J45.901 - Unspecified asthma with (acute) exacerbation EVERETT DIAS MD May 17, 2025 19:53
[2025-05-18 05:20] LABS: MEAN PLATELET VOLUME 7.5 FL (7.4-10.4); RED CELL DISTRIBUTION WIDTH 17.4 % (11.5-14.5)
[2025-05-18 06:10] LABS: CREATININE 0.47 MG/DL (0.40-0.90); TOTAL CARBON DIOXIDE 27.2 MMOL/L (24-32); eCRCL 136 ML/MIN; eGFR > 90 ML/MIN
[2025-05-18 06:31] VITALS: BP 108/56; PULSE 76; RESP 18; TEMP 97.8; O2SAT 93
[2025-05-18 07:30] VITALS: PULSE 75; RESP 18; O2SAT 95
[2025-05-18 07:31] VITALS: PULSE 73; RESP 18
[2025-05-18 07:38] VITALS: BP_SYST 108; PULSE 76
== END 2025-05-18 09:21 | disposition home or self-care (01) | DRG 140 ==
LOC: ER 10:32 → ED HOLD 14:55 → PCU 3S 16:56 → SUR 3N 04-24 20:42
PROVIDERS: ADMIT Internal Medicine; ATTEND Internal Medicine
PROC: B32T1ZZ Computerized Tomography (CT Scan) of Left Pulmonary Artery using Low Osmolar Contrast (ICD-10-PCS; principal; 2025-04-24)
PROC: B3201ZZ Computerized Tomography (CT Scan) of Thoracic Aorta using Low Osmolar Contrast (ICD-10-PCS; 2025-04-24)
PROC: B32S1ZZ Computerized Tomography (CT Scan) of Right Pulmonary Artery using Low Osmolar Contrast (ICD-10-PCS; 2025-04-24)
DX: J44.1 Chronic obstructive pulmonary disease with (acute) exacerbation (principal); I31.39 Other pericardial effusion (noninflammatory); J45.901 Unspecified asthma with (acute) exacerbation; E87.1 Hypo-osmolality and hyponatremia; K59.09 Other constipation; Z20.822 Contact with and (suspected) exposure to COVID-19; F17.210 Nicotine dependence, cigarettes, uncomplicated; F20.9 Schizophrenia, unspecified; F41.9 Anxiety disorder, unspecified; E87.6 Hypokalemia; Z79.899 Other long term (current) drug therapy
CPT/HCPCS: 36415; 71045; 71046; 71275; 80048; 80053; 81001; 82948; 83605; 83880; 83930; 84145; 85007; 85025; 85379; 85651; 87040; 87081; 87811; 93005; 93306; 93970; 94640; 94760; 97116; 97161; 97530; 99285; A4615; A6212; A6213; A6223; C1758; G0378; J0360; J0456; J0696; J1644; J1938; J1956; J2405; J2919; J7030; J7040; Q0177; Q9967